=== PATIENT | male | born 1975 | race Caucasian/White ===

== ENCOUNTER 2020-04-15 08:17 | Emergency (ER) | payer MEDICAID, SELFPAY ==
[2020-04-15 08:39] VITALS: BP 155/103; PULSE 73; RESP 16; TEMP 36.9; O2SAT 99; BMI 23.0
--- NOTE | 2020-04-15 09:02 | ED_ITS ---
HPI - Nausea/Vomiting/Diarrhea General: Chief complaint: Nausea/Vomiting/Diarrhea Stated complaint: withdrawl complications Time Seen by Provider: 04/15/20 08:20 Source: patient Mode of arrival: ambulatory Limitations: no limitations History of Present Illness: HPI Narrative: 44-year-old male patient presents to the emergency department due to nausea vomiting, headache, achy all over x12 hours. He reports dropped his Subutex prescription medication in the toilet, last dose was yesterday morning. He reports has follow-up appointment on Friday for refill with Dr. Rivas in [place]. He reports is a Recovering heroin addict. Last use of heroin 5 months ago. He also reports history of leukocytosis with questionable leukemia, has follow- up appointment at [facility] with specialist at [facility] in [place]. He reports significant weight loss over the past 5 to 6 months. MD elicited complaint: nausea, vomiting and abdominal pain Onset (ago): day(s) (1) Description of vomiting: bilious Associated nausea: Yes Associated abdominal pain: Yes Location of pain: Diffuse Pain consistency: intermittent Severity: moderate Quality: cramping, dull and constant Exacerbating factors: other (Absence of Subutex) Relieving factors: rest Associated symtoms: Reports anxiety, fatigue, fevers/chills, headache(s), malaise, myalgias, nausea and weakness; Denies chest pain, dysuria or palpitations Treatment prior to arrival: none Review of Systems General: Reports: 10 or more systems reviewed and unremarkable except in HPI and below Const: Reports: chills, body aches, fatigue and malaise Eyes: Denies: blurry vision or eye redness ENMT: Denies: throat pain, dental pain or disequilibrium Card: Denies: chest pain, palpitations or irregular heart rhythm Resp: Denies: dyspnea, productive cough, non-productive cough or wheezing GI: Reports: abdominal pain, nausea, vomiting, GI cramping and pain on defecation; Denies: heartburn : Denies: dysuria Musc: Denies: neck pain, back pain, joint pain or joint warmth Skin/Breast: Denies: rash or pruritus Neuro: Reports: headache(s); Denies: numbness in extremities or sensory changes Psych: Reports: anxiety; Denies: depression Cooper/Lymph: Denies: easy bruising PFSH ED PFSH: Social History (Updated 04/15/20 @ 08:45 by Fidencio Tan RN) Smoking and tobacco status: current every day smoker cigarettes Packs smoked per day: 0.5 Alcohol intake: never Physical Exam Const: COMMON NORMALS: no acute distress, patient oriented x3, healthy appearing and alert GENERAL APPEARANCE: cooperative, comfortable and well hydrated NUTRITIONAL APPEARANCE: thin ORIENTATION/CONSCIOUSNESS: Yes awake, Yes oriented to person, Yes oriented to place and Yes oriented to time HENMT: COMMON NORMALS: normocephalic, Normal external nose present and moist oral mucous membranes HEAD & SCALP: normocephalic NOSE: Normal external nose present Eye: COMMON NORMALS: Equal, round and reactive pupils present and EOMs intact bilaterally GENERAL EYE: appearance normal, both eyes and all related structures PUPIL: Yes Equal, round and reactive pupils present Neck/C-Spine: COMMON NORMALS: full ROM and no lymphadenopathy GENERAL: Yes normal visual inspection and Yes trachea midline CERVICAL SPINE: Yes cervical ROM normal Lymph: LYMPHATIC: no lymphadenopathy noted Chest: COMMONS NORMALS: normal inspection of the chest and normal palpation of entire chest wall Resp: COMMON NORMALS: normal respiratory effort and clear to auscultation bilaterally EFFORT & INSPECTION: Yes able to speak in complete sentences AUSCULTATION: clear to auscultation bilaterally Cardio: COMMON NORMALS: regular rhythm, S1 normal heart sound present, S2 normal heart sound present and Peripheral pulses 2+ throughout RHYTHM: regular rhythm HEART SOUNDS: S1 normal heart sound present and S2 normal heart sound present PERIPHERAL PULSES: Peripheral pulses 2+ throughout GI: COMMON NORMALS: Normal to inspection, nondistended, normoactive bowel sounds present, Soft to palpation and non-tender INSPECTION: Yes normal to inspection, No Abdominal wall edema, No abdominal distension and No visible peristalsis PALPATION: Yes Soft to palpation : COMMON NORMALS: Yes no CVA tenderness BLADDER/KIDNEY EXAM: Yes no CVA tenderness Back/Pelvis: COMMON NORMALS: no CVA tenderness and thoracic and lumbar spine normal to inspection Extremity: COMMON NORMALS: normal to inspection and capillary refill normal Neuro: COMMON NORMALS: patient oriented x3 and no focal motor deficits SENSORIUM/ORIENTATION: Yes alert, Yes oriented to person, Yes oriented to place and Yes oriented to time Psych: COMMON NORMALS: mental status grossly normal, Normal thought process present and cooperative ACTIVITY/MOTOR BEHAVIOR: Yes appropriate eye contact THOUGHT PROCESS: Normal thought process present Skin: COMMON NORMALS: no rashes or lesions noted and turgor normal GENERAL SKIN EXAM: no rashes or lesions noted and turgor normal Course ED course: 44-year-old male patient presents to the emergency department with Subutex withdrawal symptoms. Patient is declining serology work-up, has declined x-ray work-up. He received IV fluids along with Zofran and IV Tylenol which helps symptoms. Was tolerating ice chips without vomiting. Spoke with Dr. Rojo, ED supervising physician who advised unable to prescribe Subutex secondary to required licensure. Patient is requesting to leave AGAINST MEDICAL ADVICE. He agrees need for follow-up with Dr. Rivas as scheduled on Friday. I have prescribed a few tablets of clonidine to help with withdrawal symptoms. I have also prescribed Zofran to help with nausea symptoms. He was advised to return to the emergency department if he developed worsening symptoms. He is aware white blood count could be elevated and could have life-threatening illness such as leukemia that cannot be appreciated without needed serology testing. He continues to refuse testing and expresses to leave AMA. Vital Signs: Vital signs: Vital Signs Temperature 98.4 F 04/15/20 08:39 Pulse Rate 73 04/15/20 08:39 Respiratory Rate 16 04/15/20 10:33 Blood Pressure 155/103 04/15/20 08:39 Pulse Oximetry 99 04/15/20 08:39 Discharge Plan Discharge Patient Disposition: Left Against Medical Advice Clinical Impression: Withdrawal from opioids Nausea & vomiting Qualifiers: Vomiting type: unspecified Vomiting Intractability: unspecified Qualified Code(s): R11.2 - Nausea with vomiting, unspecified Condition: Stable Prescriptions: New clonidine HCl 0.1 mg tablet 0.1 mg PO Q12H Qty: 4 RF: 0 Zofran 4 mg tablet 4 mg PO Q4H Qty: 4 RF: 0 Discharge Orders: Discharge Order (Routine); Ordered 04/15/20 Ordered By: Faith Lawrence Referrals: Sixto Salas MD [Primary Care Provider] - Discharge Diet: Advance as tolerated and Clear Liquid Discharge Activity: Limit activity as instructed Patient Instructions: Acute Nausea and Vomiting (ED), Opioid Withdrawal (ED) Activity Restrictions/Additional Instructions: Return to the emergency department if you develop increased nausea vomiting despite use of Zofran, abdominal pain or other concerning symptoms Follow-up with Dr. Rivas on Friday as scheduled Clear liquid diet and advance as tolerated, avoid greasy fried fatty foods as this can increase vomiting symptoms and nausea Take it easy today and tomorrow, rest at home, clonidine will make you sleepy so do not drive or operate heavy machinery with use of medication. Coding Level of Care Code ED Marine Electronics Technician for Chg Fwd Exam Comprehensive
[2020-04-15] MEDS: ondansetron 2 mg/ML SDV 2 mL 4 MG IVP (09:40)
[2020-04-15] MEDS: sodium chloride 0.9% 500 ML 999 ML IV (09:40)
--- NOTE | 2020-04-15 09:49 | PC.NURSE ---
REFUSING UA, CXR, ASSESSMENT. JUST WANTS SCRIPT AND TO BE DISCHARGED.
[2020-04-15 10:33] VITALS: RESP 16
== END 2020-04-15 10:25 | disposition left against medical advice (07) ==
PROVIDERS: Emergency Provider Nurse Practitioner Family; PCP Family Medicine
DX: F11.23 Opioid dependence with withdrawal (principal); F17.210 Nicotine dependence, cigarettes, uncomplicated; Z53.21 Procedure and treatment not carried out due to patient leaving prior to being seen by health care provider
CPT/HCPCS: 12345; 96374; 96375; 99283; J0131; J2405; J7040

== ENCOUNTER → 2020-08-03 13:40 | Outpatient (BNVA) | payer OTHER, SELFPAY | PROVIDERS: PCP Family Medicine | DX: Z20.822 Contact with and (suspected) exposure to COVID-19 (principal) | CPT/HCPCS: 87635 ==

== ENCOUNTER 2020-10-06 14:50 | Emergency (ER) | payer MEDICAID, SELFPAY ==
[2020-10-06 14:55] VITALS: BP 132/109; PULSE 74; RESP 16; TEMP 36.6; O2SAT 98; BMI 23.0
--- NOTE | 2020-10-06 15:08 | ED_ITS ---
HPI - Psych General: Chief Complaint: Psychiatric Symptoms Stated Complaint: PSYCH EVAL Time Seen by Provider: 10/06/20 14:52 Source: patient Mode of arrival: EMS Limitations: no limitations History of Present Illness: HPI Narrative: Patient is a 45-year-old male was sent to the emergency department from [facility] for evaluation. He states that he has been out of his Subutex for about 2 weeks and said that he missed his appointment to [place] to get his pain doctor to refill the medication. He states that he is also out of Prilosec and Remeron I would like them refilled also. He admits to several days of diarrhea, loose watery stools with no blood or mucus in them. Denies any vomiting or nausea. No fever. He thinks he may be dehydrated as he has a loss of appetite. He denies suicidal ideation and denies homicidal ideation. He also mentioned that he had been told that he may have leukemia but he is unwilling to have further testing as he does not want to face the possibility of that diagnosis. Associated psychiatric symptoms: depression Associated symptoms: Deny auditory hallucinations, visual hallucinations, delusions, depression, homicidal ideation, suicidal ideation or racing thoughts Treatments prior to arrival: none Review of Systems General: Reports: 10 or more systems reviewed and unremarkable except in HPI and below GI: Reports: diarrhea Psych: Denies: depression, visual hallucinations, auditory hallucinations, suicidal ideation or homicidal ideation [facility] ED PFSH: Social History (Reviewed 10/06/20 @ 15:17 by Maddi Quarles MD, [facility] [place]) Smoking and tobacco status: current every day smoker cigarettes Packs smoked per day: 0.5 Alcohol intake: never Physical Exam Const: COMMON NORMALS: no acute distress, average body habitus, patient oriented x3, no limitations, healthy appearing, alert and well nourished HENMT: COMMON NORMALS: normocephalic, atraumatic and moist oral mucous membranes HEAD & SCALP: normocephalic and atraumatic Neck/C-Spine: COMMON NORMALS: no meningeal signs and no JVD Resp: COMMON NORMALS: normal respiratory effort, No retractions, No use of accessory muscles, clear to auscultation bilaterally and percussion normal AUSCULTATION: clear to auscultation bilaterally PERCUSSION: percussion normal Cardio: COMMON NORMALS: no JVD, regular rate, regular rhythm, S1 normal heart sound present, S2 normal heart sound present, No gallops present (Cardio), No clicks present (Cardio), No murmurs present (Cardio), No rub (Cardio) and Peripheral pulses 2+ throughout RATE: regular rate RHYTHM: regular rhythm HEART SOUNDS: S1 normal heart sound present and S2 normal heart sound present PERIPHERAL PULSES: Peripheral pulses 2+ throughout GI: COMMON NORMALS: Normal to inspection, nondistended, normoactive bowel sounds present, Soft to palpation, non-tender, No hepatosplenomegaly present, no masses and no bruits PALPATION: Yes Soft to palpation and Yes No hepatosplenomegaly present Extremity: COMMON NORMALS: normal to inspection, full ROM, capillary refill normal, no calf tenderness and no pedal edema Neuro: COMMON NORMALS: patient oriented x3 SENSORIUM/ORIENTATION: Yes alert MENINGEAL SIGNS: Yes no meningeal signs Psych: THOUGHT CONTENT: No delusions Skin: COMMON NORMALS: no rashes or lesions noted, no wounds, turgor normal, no jaundice, no petechiae and no mottling GENERAL SKIN EXAM: no rashes or lesions noted and turgor normal Course Reevaluation(s): Reevaluation #1: Discussed these lab findings with him. BUN/creatinine ratio suggestive of dehydration including ketones in his urine. Otherwise unremarkable. He has received 1 L of normal saline and he will be discharged home. No signs of infection and he has had no bowel movement in the ED. He voiced understanding and is in agreement with the plan. Time: 16:45 Vital Signs: Vital signs: Vital Signs Temperature 97.9 F 10/06/20 14:55 Pulse Rate 75 10/06/20 17:04 Respiratory Rate 16 10/06/20 17:04 Blood Pressure 152/101 10/06/20 17:04 Pulse Oximetry 98 10/06/20 17:04 MDM - Psych MDM Narrative: Medical decision making narrative: 45-year-old male who presents to the emergency department with diarrhea for several days as well as needing his medications refilled. He had missed an appointment with his pain doctor for refill of Subutex. He says that avoid withdrawal he had used methamphetamines yesterday. Evaluation in the emergency department shows dehydration and he was given 1 L of normal saline. Evaluation was otherwise unremarkable. He did not have any bowel movement in the emergency department. He is discharged home on conservative measures. He was informed that we do not refill Subutex in the emergency department and he stated that he knew that, however I refilled his mirtazapine and omeprazole. Medical Records: Attestation: I reviewed the patient's medical records. Lab Data: Attestation: I reviewed the patient's lab results. Labs: Lab Results 10/06/20 10/06/20 10/06/20 Range/Units 15:40 15:40 15:40 WBC 11.2 H (4.0-10.0) 10^3/ uL RBC 5.49 H (4.1-5.3) 10^6/u L Hgb 17.0 H (11.7-16.6) g/dL Hct 48.6 (42.0-52.0) % MCV 88.5 (80-94) fL MCH 31.0 (28.0-34.0) pg MCHC 35.0 (30.0-36.0) g/dL RDW 12.8 (12.1-15.1) % Plt Count 344 (130-400) 10^3/c mm MPV 10.0 (7.4-10.4) fL Neut % (Auto) 46.5 % Lymph % (Auto) 45.0 % [place] % (Auto) 7.1 % Eos % (Auto) 0.8 % Baso % (Auto) 0.4 % Neut # (Auto) 5.21 (1.8-7.7) 10^3/u L Lymph # (Auto) 5.0 H (0.8-4.8) 10^3/u L [place] # (Auto) 0.8 (0.2-0.9) 10^3/u L Eos # (Auto) 0.1 (0.0-0.8) 10^3/u L Baso # (Auto) 0.1 (0.0-0.1) 10^3/u L Nucleated RBC % (a uto) 0 % Nucleated RBCs # 0.0 /100WBC Sodium 130 L (136-145) mmol/L Potassium 4.1 (3.5-5.1) mmol/L Chloride 95 L (98-107) mmol/L Carbon Dioxide 20 L (22-29) mmol/L Anion Gap 19.1 H (5-19) BUN 23 H (6-20) mg/dL Creatinine 0.9 (0.7-1.2) mg/dL GFR Calculation 91.7 (90-130) mL/min Glucose 90 (65-115) mg/dL Calculated Osmolal ity 273 L (285-295) mOsm/k g Lactate 1.4 (0.5-2.2) mmol/L Calcium 9.3 (8.5-10.5) mg/dL Total Bilirubin 0.9 (0.15-1.2) mg/dL AST 17 (0-40) U/L ALT 9 (0-41) U/L Alkaline Phosphata se 90 (40-130) IU/L Total Protein 8.2 (6.6-8.7) g/dL Albumin 5.1 (3.5-5.2) g/dL Globulin 3.1 (1.3-4.6) g/dL Lipase 36 (13-60) U/L Urine Color (Yellow) Urine Appearance (CLEAR) Urine pH (5-7) Ur Specific Gravit y (1.005-1.030) Urine Protein (Negative) Urine Glucose (UA) (Normal) Urine Ketones (Negative) Urine Blood (Negative) Urine Nitrate (Negative) Urine Bilirubin (Negative) Urine Urobilinogen (Negative) mg/dL Ur Leukocyte Farnaz ase (Negative) Urine RBC (0-2) /hpf Urine WBC (0-5) /hpf Ur Squamous Epith Cells (0-5) /hpf Amorphous Sediment Urine Bacteria (NONE) /hpf Hyaline Casts /lpf Urine Mucus /hpf // Range/Units 15:40 WBC (4.0-10.0) 10^3/ uL RBC (4.1-5.3) 10^6/u L Hgb (11.7-16.6) g/dL Hct (42.0-52.0) % MCV (80-94) fL MCH (28.0-34.0) pg MCHC (30.0-36.0) g/dL RDW (12.1-15.1) % Plt Count (130-400) 10^3/c mm MPV (7.4-10.4) fL Neut % (Auto) % Lymph % (Auto) % [place] % (Auto) % Eos % (Auto) % Baso % (Auto) % Neut # (Auto) (1.8-7.7) 10^3/u L Lymph # (Auto) (0.8-4.8) 10^3/u L [place] # (Auto) (0.2-0.9) 10^3/u L Eos # (Auto) (0.0-0.8) 10^3/u L Baso # (Auto) (0.0-0.1) 10^3/u L Nucleated RBC % (a uto) % Nucleated RBCs # /100WBC Sodium (136-145) mmol/L Potassium (3.5-5.1) mmol/L Chloride (98-107) mmol/L Carbon Dioxide (22-29) mmol/L Anion Gap (5-19) BUN (6-20) mg/dL Creatinine (0.7-1.2) mg/dL GFR Calculation (90-130) mL/min Glucose (65-115) mg/dL Calculated Osmolal ity (285-295) mOsm/k g Lactate (0.5-2.2) mmol/L Calcium (8.5-10.5) mg/dL Total Bilirubin (0.15-1.2) mg/dL AST (0-40) U/L ALT (0-41) U/L Alkaline Phosphata se (40-130) IU/L Total Protein (6.6-8.7) g/dL Albumin (3.5-5.2) g/dL Globulin (1.3-4.6) g/dL Lipase (13-60) U/L Urine Color Yellow (Yellow) Urine Appearance Clear (CLEAR) Urine pH 5 (5-7) Ur Specific Gravit y 1.025 (1.005-1.030) Urine Protein Neg (Negative) Urine Glucose (UA) Norm (Normal) Urine Ketones 1+ H (Negative) Urine Blood 2+ H (Negative) Urine Nitrate Negative (Negative) Urine Bilirubin Neg (Negative) Urine Urobilinogen 1 H (Negative) mg/dL Ur Leukocyte Farnaz ase Negative (Negative) Urine RBC Rare (0-2) /hpf Urine WBC Rare (0-5) /hpf Ur Squamous Epith Cells Rare (0-5) /hpf Amorphous Sediment Not Reportable Urine Bacteria 1+ H (NONE) /hpf Hyaline Casts 0-4 H /lpf Urine Mucus 2+ /hpf Discharge Plan Discharge Patient Disposition: Home Clinical Impression: Dehydration Diarrhea Qualifiers: Diarrhea type: unspecified type Qualified Code(s): R19.7 - Diarrhea, unspecified Condition: Stable Prescriptions: Continued ProAir HFA 90 mcg/actuation Hfa Aerosol Inhaler 2 puff INHALATION Q4H PRN (Reason: Shortness Of Breath) RF: 0 buprenorphine HCl 8 mg tablet, sublingual 8 mg SUBLINGUAL TID RF: 0 mirtazapine 45 mg tablet 45 mg PO BEDTIME Qty: 30 RF: 0 omeprazole 40 mg capsule,delayed release(DR/EC) 40 mg PO DAILY Qty: 30 RF: 0 Discharge Orders: Discharge ED (Routine); Ordered 10/06/20 Ordered By: Maddi Quarles Discharge Diet: Usual diet Discharge Activity: Increase activity as tolerated Patient Instructions: Diarrhea - Adult, Dehydration (ED) Activity Restrictions/Additional Instructions: Return for any new or worsening symptoms. Follow-up with your primary care provider within 3 days. Drink plenty of fluids to keep well-hydrated. Take your medications as prescribed. Coding Level of Care Code ED [employer] Floor for Chelle Fwd Exam Comprehensive
[2020-10-06] MEDS: sodium chloride 0.9% 1,000 ML 999 ML IV (15:49)
[2020-10-06 16:08] LABS: Basophils # 0.1 10^3/uL (0.0-0.1); Basophils % 0.4 %; Eosinophils # 0.1 10^3/uL (0.0-0.8); Eosinophils % 0.8 %; Hematocrit 48.6 % (42.0-52.0); Mean Corpuscular Volume 88.5 fL (80-94); Monocytes # 0.8 10^3/uL (0.2-0.9); Monocytes % 7.1 %; Neutrophils # 5.21 10^3/uL (1.8-7.7); Neutrophils % 46.5 %; Nucleated Red Blood Cells % 0 %; Platelet Count 344 10^3/cmm (130-400); Red Blood Count 5.49 10^6/uL (4.1-5.3); Red Cell Distribution Width 12.8 % (12.1-15.1); White Blood Count 11.2 10^3/uL (4.0-10.0)
[2020-10-06 16:14] LABS: Specific Gravity, Urine 1.025 (1.005-1.030); Urine Appearance Clear (CLEAR); Urine Color Yellow (Yellow); pH Urine 5 (5-7)
[2020-10-06 16:15] LABS: Add Urine Microscopic? YES; Bilirubin Urine Neg (Negative); Blood Urine 2+ (Negative); Glucose Urine UA Norm (Normal); Ketones Urine 1+ (Negative); Leukocyte Esterase Urine Negative (Negative); Nitrate Urine Negative (Negative); Protein Urine Neg (Negative); Urobilinogen Urine 1 mg/dL (Negative)
[2020-10-06 16:25] LABS: Bacteria Urine 1+ /hpf; Mucus Urine 2+ /hpf; RBC Urine RARE /hpf (0-2); Squamous Epithelial Cell Urine RARE /hpf (0-5); WBC Urine RARE /hpf (0-5)
[2020-10-06 16:26] LABS: Add Urine Culture? No; Hyaline Casts Urine 0-4 /lpf
[2020-10-06 16:31] LABS: Lactate (Lactic Acid level) 1.4 mmol/L (0.5-2.2)
[2020-10-06 16:37] LABS: Alanine Aminotransferase 9 U/L (0-41); Albumin Level 5.1 g/dL (3.5-5.2); Alkaline Phosphatase 90 IU/L (40-130); Anion Gap 19.1 (5-19); Aspartate Amino Transferase 17 U/L (0-40); Blood Urea Nitrogen 23 mg/dL (6-20); Calcium 9.3 mg/dL (8.5-10.5); Carbon Dioxide 20 mmol/L (22-29); Chloride 95 mmol/L (98-107); Globulin 3.1 g/dL (1.3-4.6); Glomerular Filtration Rate 91.7 mL/min (90-130); Glucose 90 mg/dL (65-115); Lipase 36 U/L (13-60); Osmolality Calculated 273 mOsm/kg (285-295); Potassium 4.1 mmol/L (3.5-5.1); Sodium 130 mmol/L (136-145); Total Bilirubin 0.9 mg/dL (0.15-1.2); Total Protein 8.2 g/dL (6.6-8.7)
[2020-10-06 16:42] VITALS: BP 162/105; PULSE 82; RESP 16; O2SAT 98
[2020-10-06 17:04] VITALS: BP 152/101; PULSE 75; RESP 16; O2SAT 98
== END 2020-10-06 17:06 | disposition home or self-care (01) ==
PROVIDERS: Emergency Provider Family Medicine
DX: E86.0 Dehydration (principal); R19.7 Diarrhea, unspecified; F17.210 Nicotine dependence, cigarettes, uncomplicated
CPT/HCPCS: 80053; 81001; 83605; 83690; 85025; 96360; 99283; J7030

== ENCOUNTER 2020-11-27 11:13 | Inpatient (IN) | payer MEDICAID, SELFPAY ==
[2020-11-27 11:25] VITALS: BP 118/73; PULSE 80; RESP 16; TEMP 36.8; O2SAT 97
--- NOTE | 2020-11-27 11:33 | ECG_ITS ---
[facility] Test Date: 2020-11-27 Pat Name: Ismael Ferrell Department: Room: Gender: Male Information Services Vice President: : 1975 Requested By: Rob Brown Order Number: [id number] Floridalma MD: DIANA JASMINE Measurements Intervals [place] Rate: 62 P: 139 GA: 181 QRS: 224 QRSD: 101 T: 145 QT: 403 QTc: 410 Interpretive Statements SINUS RHYTHM ARM LEADS REVERSED [INVERTED P AND QRS IN I] ATYPICAL ECG No previous ECG available for comparison Electronically Signed On 11-27-2020 18:48:53 CDT by DIANA JASMINE [email or web address]
--- NOTE | 2020-11-27 11:34 | ED_ITS ---
HPI - Psych General: Chief Complaint: Psychiatric Symptoms Stated Complaint: Suicidal Time Seen by Provider: 11/27/20 11:30 History of Present Illness: HPI Narrative: This patient is a 45-year-old male who presents to the emergency department with complaint of auditory hallucinations. Patient has long history of drug abuse states he tries to take prep pretty much anything he can get his hands on. Patient states he smokes marijuana take Xanax a day. Last used methamphetamine just a few days ago. Patient also states he uses heroin in the past and try to get of Subutex treatments. Patient states it is hard to find heroin in these parts but mostly just uses meth. Patient denies suicidal ideation. Patient believes he needs to be in the stress unit here because the voices he hears. Patient states he has had this issues for years. Will do medical evaluation treat as needed. complaint: other Onset (ago): year(s) Duration: intermittent History of same: Yes Relieving factors: none Exacerbating factors: none Associated symptoms: Reports auditory hallucinations; Deny depression, homicidal ideation or suicidal ideation Review of Systems General: Reports: 10 or more systems reviewed and unremarkable except in HPI and below Const: Denies: fever(s), chills, body aches or fatigue Eyes: Denies: change in vision or blurry vision ENMT: Denies: throat pain, hoarseness or mouth pain Card: Denies: chest pain, palpitations, irregular heart rhythm, edema, swelling of feet/ankles or lightheadedness Resp: Denies: dyspnea, productive cough, non-productive cough, wheezing or pain on inspiration GI: Denies: abdominal pain, nausea or vomiting : Denies: flank pain, dysuria, urinary frequency, urinary urgency or urinary hesitancy Musc: Denies: neck pain, back pain, extremity pain, extremity swelling, joint pain, joint swelling, joint redness, joint warmth or limited range of motion Skin/Breast: Denies: rash, pruritus, erythema or skin tenderness Neuro: Denies: headache(s), numbness in extremities or weakness in extremities Psych: Reports: auditory hallucinations; Denies: anxiety, depression, suicidal ideation or homicidal ideation PFS ED PFSH: Social History Smoking and tobacco status: current every day smoker cigarettes Packs smoked per day: 0.5 Alcohol intake: never Physical Exam Const: COMMON NORMALS: no acute distress, average body habitus, patient oriented x3, no limitations, healthy appearing, alert and well nourished HENMT: COMMON NORMALS: normocephalic, atraumatic, hearing grossly normal bilaterally, external ears normal, EAC's normal, TM's normal bilaterally, Normal external nose present, Normal nasal mucous membranes and turbinates present, moist oral mucous membranes, oropharynx normal, dentition normal and gingiva normal HEAD & SCALP: normocephalic and atraumatic NOSE: Normal external nose present and Normal nasal mucous membranes and turbinates present EXTERNAL EAR: Yes external ears normal EXTERNAL AUDITORY CANAL: EAC's normal TYMPANIC MEMBRANE: TM's normal bilaterally Neck/C-Spine: COMMON NORMALS: full ROM, no lymphadenopathy, supple, no meningeal signs, no JVD, Thyroid normal and No carotid bruits THYROID: Thyroid normal Chest: COMMONS NORMALS: normal inspection of the chest, normal palpation of entire chest wall, normal inspection of the breasts and normal palpation of the breasts Breast/axilla inspection: Yes normal inspection of the breasts BREAST/AXILLA PALPATION: Yes normal palpation of the breasts Resp: COMMON NORMALS: normal respiratory effort, No retractions, No use of accessory muscles, clear to auscultation bilaterally and percussion normal AUSCULTATION: clear to auscultation bilaterally PERCUSSION: percussion normal Cardio: COMMON NORMALS: no JVD, regular rate, regular rhythm, S1 normal heart sound present, S2 normal heart sound present, No gallops present (Cardio), No clicks present (Cardio), No murmurs present (Cardio), No rub (Cardio) and Peripheral pulses 2+ throughout RATE: regular rate RHYTHM: regular rhythm HEART SOUNDS: S1 normal heart sound present and S2 normal heart sound present PERIPHERAL PULSES: Peripheral pulses 2+ throughout GI: COMMON NORMALS: Normal to inspection, nondistended, normoactive bowel sounds present, Soft to palpation, non-tender, No hepatosplenomegaly present, no masses and no bruits PALPATION: Yes Soft to palpation and Yes No hepatosplenomegaly present : COMMON NORMALS: Yes no CVA tenderness BLADDER/KIDNEY EXAM: Yes no CVA tenderness Back/Pelvis: COMMON NORMALS: no CVA tenderness, thoracic and lumbar spine normal to inspection, no thoracic nor lumbar tenderness, thoraco-lumbar ROM normal and straight leg raise negative bilaterally Extremity: COMMON NORMALS: normal to inspection, full ROM, capillary refill normal, no joint enlargement, no clubbing, cyanosis or edema, no calf tenderness and no pedal edema Neuro: COMMON NORMALS: patient oriented x3 SENSORIUM/ORIENTATION: Yes alert MENINGEAL SIGNS: Yes no meningeal signs Psych: COMMON NORMALS: mental status grossly normal, Normal thought process present, cooperative, normal affect, speech normal, denies homicidal ideation and denies suicidal ideation APPEARANCE: Yes grossly normal ATTITUDE: Yes calm SPEECH: Yes normal speech THOUGHT PROCESS: Normal thought process present Course Reevaluation(s): Reevaluation #1: Patient states he does not want to live anymore. But does not have a specific plan. Admits that he has been using drugs pretty frequently and has a chronic condition. Ever since getting out of nursing home. Time: 12:42 Consultations: Consultation #1: I discussed at length with psychiatry Dr. Garcia. He request the patient be placed on a 96-hour hold and admit to the unit. Time: 12:43 Vital Signs: Vital signs: Vital Signs Temperature 98.2 F 11/27/20 11:25 Pulse Rate 80 11/27/20 11:25 Respiratory Rate 16 11/27/20 11:25 Blood Pressure 118/73 11/27/20 11:25 Pulse Oximetry 97 11/27/20 11:25 MDM - Psych MDM Narrative: Medical decision making narrative: This patient is a 45-year-old male who presents to the emergency department with complaint of auditory hallucinations. Patient has long history of drug abuse states he tries to take prep pretty much anything he can get his hands on. Patient states he smokes marijuana take Xanax a day. Last used methamphetamine just a few days ago. Patient also states he uses heroin in the past and try to get of Subutex treatments. Patient states it is hard to find heroin in these parts but mostly just uses meth. Patient denies suicidal ideation. Patient believes he needs to be in the stress unit here because the voices he hears. Patient states he has had this issues for years. Lab Data: Labs: Lab Results 11/27/20 11/27/20 11/27/20 Range/Units 11:47 11:47 11:49 WBC 8.5 (4.0-10.0) 10^3/ uL RBC 4.31 (4.1-5.3) 10^6/u L Hgb 13.4 (11.7-16.6) g/dL Hct 39.6 L (42.0-52.0) % MCV 91.9 (80-94) fL MCH 31.1 (28.0-34.0) pg MCHC 33.8 (30.0-36.0) g/dL RDW 13.3 (12.1-15.1) % Plt Count 307 (130-400) 10^3/c mm MPV 9.8 (7.4-10.4) fL Neut % (Auto) 38.7 % Lymph % (Auto) 52.2 % [place] % (Auto) 6.4 % Eos % (Auto) 1.9 % Baso % (Auto) 0.6 % Neut # (Auto) 3.29 (1.8-7.7) 10^3/u L Lymph # (Auto) 4.4 (0.8-4.8) 10^3/u L [place] # (Auto) 0.5 (0.2-0.9) 10^3/u L Eos # (Auto) 0.2 (0.0-0.8) 10^3/u L Baso # (Auto) 0.1 (0.0-0.1) 10^3/u L Nucleated RBC % (a uto) 0 % Nucleated RBCs # 0.0 /100WBC Sodium (136-145) mmol/L Potassium (3.5-5.1) mmol/L Chloride (98-107) mmol/L Carbon Dioxide (22-29) mmol/L Anion Gap (5-19) BUN (6-20) mg/dL Creatinine (0.7-1.2) mg/dL GFR Calculation (90-130) mL/min Glucose (65-115) mg/dL Calculated Osmolal ity (285-295) mOsm/k g Calcium (8.5-10.5) mg/dL Total Bilirubin (0.15-1.2) mg/dL AST (0-40) U/L ALT (0-41) U/L Alkaline Phosphata se (40-130) IU/L Total Protein (6.6-8.7) g/dL Albumin (3.5-5.2) g/dL Globulin (1.3-4.6) g/dL Urine Color Straw (Yellow) Urine Appearance Clear (CLEAR) Urine pH 7 (5-7) Ur Specific Gravit y 1.005 (1.005-1.030) Urine Protein Neg (Negative) Urine Glucose (UA) Norm (Normal) Urine Ketones Negative (Negative) Urine Blood Neg (Negative) Urine Nitrate Negative (Negative) Urine Bilirubin Neg (Negative) Urine Urobilinogen Norm (Negative) mg/dL Ur Leukocyte Farnaz ase Negative (Negative) Salicylates (3-10) mg/dL Urine Opiates Scre en Negative (Negative) ng/mL Acetaminophen (10-30) ug/mL Ur Barbiturates Sc reen Negative (Negative) ng/mL Ur Phencyclidine S crn Negative (Negative) ng/mL Ur Amphetamines Sc reen Negative (Negative) ng/mL U Benzodiazepines Scrn Positive H (Negative) ng/mL Urine Cocaine Scre en Negative (Negative) ng/mL U Marijuana (THC) Screen Positive H (Negative) ng/mL Ethyl Alcohol (0-10) mg/dL 11/27/20 Range/Units 11:49 WBC (4.0-10.0) 10^3/ uL RBC (4.1-5.3) 10^6/u L Hgb (11.7-16.6) g/dL Hct (42.0-52.0) % MCV (80-94) fL MCH (28.0-34.0) pg MCHC (30.0-36.0) g/dL RDW (12.1-15.1) % Plt Count (130-400) 10^3/c mm MPV (7.4-10.4) fL Neut % (Auto) % Lymph % (Auto) % [place] % (Auto) % Eos % (Auto) % Baso % (Auto) % Neut # (Auto) (1.8-7.7) 10^3/u L Lymph # (Auto) (0.8-4.8) 10^3/u L [place] # (Auto) (0.2-0.9) 10^3/u L Eos # (Auto) (0.0-0.8) 10^3/u L Baso # (Auto) (0.0-0.1) 10^3/u L Nucleated RBC % (a uto) % Nucleated RBCs # /100WBC Sodium 135 L (136-145) mmol/L Potassium 4.4 (3.5-5.1) mmol/L Chloride 102 (98-107) mmol/L Carbon Dioxide 26 (22-29) mmol/L Anion Gap 11.4 (5-19) BUN 9 (6-20) mg/dL Creatinine 0.8 (0.7-1.2) mg/dL GFR Calculation 105.0 (90-130) mL/min Glucose 91 (65-115) mg/dL Calculated Osmolal ity 278 L (285-295) mOsm/k g Calcium 8.9 (8.5-10.5) mg/dL Total Bilirubin 0.5 (0.15-1.2) mg/dL AST 18 (0-40) U/L ALT 12 (0-41) U/L Alkaline Phosphata se 65 (40-130) IU/L Total Protein 6.8 (6.6-8.7) g/dL Albumin 4.0 (3.5-5.2) g/dL Globulin 2.8 (1.3-4.6) g/dL Urine Color (Yellow) Urine Appearance (CLEAR) Urine pH (5-7) Ur Specific Gravit y (1.005-1.030) Urine Protein (Negative) Urine Glucose (UA) (Normal) Urine Ketones (Negative) Urine Blood (Negative) Urine Nitrate (Negative) Urine Bilirubin (Negative) Urine Urobilinogen (Negative) mg/dL Ur Leukocyte Farnaz ase (Negative) Salicylates 0.7 L (3-10) mg/dL Urine Opiates Scre en (Negative) ng/mL Acetaminophen < 5.0 L (10-30) ug/mL Ur Barbiturates Sc reen (Negative) ng/mL Ur Phencyclidine S crn (Negative) ng/mL Ur Amphetamines Sc reen (Negative) ng/mL U Benzodiazepines Scrn (Negative) ng/mL Urine Cocaine Scre en (Negative) ng/mL U Marijuana (THC) Screen (Negative) ng/mL Ethyl Alcohol < 10 (0-10) mg/dL EKG Data^: EKG 1: Attestation: I personally reviewed and interpreted this EKG as follows: EKG interpretation date: 11/27/20 EKG interpretation time: 11:58 Prior EKG tracings: not available for review Interpretation: Normal sinus rhythm heart rate 62 Discharge Plan Discharge Patient Disposition: Admitted As Inpatient Clinical Impression: Suicidal ideation, Drug abuse Condition: Stable Coding Level of Care Code ED Immigration Investigator for Chg Fwd Exam Comprehensive
[2020-11-27 12:01] LABS: Add Urine Microscopic? NO; Charge for UA Resulting for Rev
[2020-11-27 12:02] LABS: Basophils # 0.1 10^3/uL (0.0-0.1); Basophils % 0.6 %; Eosinophils # 0.2 10^3/uL (0.0-0.8); Eosinophils % 1.9 %; Hematocrit 39.6 % (42.0-52.0); Hemoglobin 13.4 g/dL (11.7-16.6); Lymphocytes # 4.4 10^3/uL (0.8-4.8); Lymphocytes % 52.2 %; Mean Corpuscular HGB Conc 33.8 g/dL (30.0-36.0); Mean Corpuscular Hemoglobin 31.1 pg (28.0-34.0); Mean Corpuscular Volume 91.9 fL (80-94); Mean Platelet Volume 9.8 fL (7.4-10.4); Monocytes # 0.5 10^3/uL (0.2-0.9); Monocytes % 6.4 %; Neutrophils # 3.29 10^3/uL (1.8-7.7); Neutrophils % 38.7 %; Nucleated Red Blood Cells % 0 %; Platelet Count 307 10^3/cmm (130-400); Red Blood Count 4.31 10^6/uL (4.1-5.3); Red Cell Distribution Width 13.3 % (12.1-15.1); White Blood Count 8.5 10^3/uL (4.0-10.0)
[2020-11-27 12:06] LABS: Bilirubin Urine Neg (Negative); Blood Urine Neg (Negative); Glucose Urine UA Norm (Normal); Ketones Urine Negative (Negative); Leukocyte Esterase Urine Negative (Negative); Nitrate Urine Negative (Negative); Protein Urine Neg (Negative); Specific Gravity, Urine 1.005 (1.005-1.030); Urine Appearance Clear (CLEAR); Urine Color Straw (Yellow); Urobilinogen Urine Norm (Negative); pH Urine 7 (5-7)
[2020-11-27 12:15] LABS: Amphetamines Screen Urine Negative (Negative); Barbiturates Screen Urine Negative (Negative); Benzodiazepines Screen Urine Positive (Negative); Cocaine Screen Urine Negative (Negative); Opiate Screen Urine Negative (Negative); PCP Screen Urine Negative (Negative); THC Screen Urine Positive (Negative)
[2020-11-27 12:23] LABS: Alanine Aminotransferase 12 U/L (0-41); Alkaline Phosphatase 65 IU/L (40-130); Anion Gap 11.4 (5-19); Aspartate Amino Transferase 18 U/L (0-40); Blood Urea Nitrogen 9 mg/dL (6-20); Calcium 8.9 mg/dL (8.5-10.5); Carbon Dioxide 26 mmol/L (22-29); Chloride 102 mmol/L (98-107); Globulin 2.8 g/dL (1.3-4.6); Glucose 91 mg/dL (65-115); Osmolality Calculated 278 mOsm/kg (285-295); Potassium 4.4 mmol/L (3.5-5.1); Salicylate 0.7 mg/dL (3-10); Sodium 135 mmol/L (136-145); Total Bilirubin 0.5 mg/dL (0.15-1.2); Total Protein 6.8 g/dL (6.6-8.7)
[2020-11-27 12:28] LABS: Acetaminophen < 5.0 ug/mL (10-30); Alcohol Level < 10 mg/dL (0-10)
--- NOTE | 2020-11-27 13:03 | PC.PHAR ---
pt wouldnt verify medications-ext med history shows ibuprofen 800mg last filled on 10d/s,colace 100mg 30d/s,tramcin/orabas 1% dent paste,pantoprazole 40mg 30d/s,benztropine 2mg 30d/s,miralax,lexapro 10mg 30d/s and buprenorphine 8mg sl 14d/s last filled on 10/18/20
[2020-11-27 13:40] VITALS: BP 114/81; PULSE 81; RESP 12; TEMP 36.9; O2SAT 96
[2020-11-27 13:59] VITALS: BP 118/73; PULSE 80; O2SAT 97
[2020-11-27 14:00] VITALS: BP 118/73; PULSE 80; RESP 12; TEMP 36.9
[2020-11-27] MEDS: nicotine 21 mg Patch 1 PATCH TRANSDERMA (15:37)
--- NOTE | 2020-11-27 16:39 | PC.NURSE ---
pt had weed in a baggie in personal belongings. security contacted. contraband disposed of in sharps container.
[2020-11-27 21:22] VITALS: BP 132/77; PULSE 82; RESP 17; TEMP 37.1; O2SAT 96
[2020-11-27] MEDS: benztropine 1 mg Tablet 2 MG PO (21:53)
[2020-11-27] MEDS: escitalopram 10 mg Tablet PO (21:53)
[2020-11-27] MEDS: mirtazapine 15 mg Tablet 45 MG PO (21:54)
[2020-11-28 05:07] VITALS: BP 141/93; PULSE 86; RESP 15; TEMP 37.1; O2SAT 97
[2020-11-28] MEDS: pantoprazole DR 40 mg Tablet PO (08:10)
[2020-11-28] MEDS: docusate sodium 100 mg Capsule PO ×2 (08:10→17:56)
--- NOTE | 2020-11-28 11:53 | P.HP_ITS ---
Providers/Chief Complaint Admitting Physician: Maddison Garcia DO Chief Complaint: Suicidal HPI NPU History of Present Illness Ismael Ferrell is a 45 year old male with unclear past psychiatric history although was reported to have major depressive disorder during behavioral health evaluation in September 2020 presented to the emergency department with auditory hallucinations and was providing vague responses with regards to suicidality at times stating that he was not suicidal and then subsequently stating that he would not be responsible for what he does if he leaves the hospital. Patient was reporting auditory hallucinations and states that his last use of methamphetamine was a few days before presenting to the emergency department yesterday. Patient is irritable and not a very good historian stating how my supposed to get help when telling him that he had requested admission because of suicida lity as well as stating that he had auditory hallucinations and now reporting that he just wants to leave because he has an appointment today. Patient states that if he does not start Suboxone today that he will go out and possibly hurt someone. Patient states that he has a longstanding history of legal issues and currently has 9 warrants out for his arrest in [place]. Patient does not participate in psychiatric review of systems and is yelling at the interviewer. Review of Systems General: Reports: ROS unobtainable due to mental status Meds NPU Home Medications Medication Instructions Recorded Confirmed Last Taken Type benztropine 2 mg PO BEDTIME 11/27/20 11/27/20 Unknown History buprenorphine HCl [Subutex] 8 mg SUBLINGUAL TID MDD 15 11/27/20 11/27/20 Unknown History docusate sodium [Colace] 100 mg PO BID 11/27/20 11/27/20 Unknown History escitalopram oxalate 10 mg PO BEDTIME 11/27/20 11/27/20 Unknown History ibuprofen 800 mg PO Q8H PRN 11/27/20 11/27/20 Unknown History mirtazapine [Remeron] 45 mg PO BEDTIME 11/27/20 11/27/20 Unknown History pantoprazole [Protonix] 40 mg PO DAILY 11/27/20 11/27/20 Unknown History Allergies Allergy/AdvReac Type Severity Reaction Status Date / Time buprenorphine [From Suboxone] Allergy ALGY-Swell Verified 11/27/20 11:34 Lip/Tongue/Throat naloxone Allergy ALGY-Swell Verified 11/27/20 11:34 Lip/Tongue/Throat PFSH NPU PFSH: Social History Smoking and tobacco status: current every day smoker cigarettes Packs smoked per day: 0.5 Alcohol intake: never Other Psychiatric History: Other Psychiatric History: Unable to assess from patient but per chart review, patient had reported last outpatient treatment being with a Subutex provider in [place] who also filled his prescriptions for mirtazapine and escitalopram Reports past suicide attempts with last attempt being a couple years ago Mental Status Exam MSE Comments: Appears older than stated age, hair shaved into [place], gaunt appearing, irritable and angry and uncooperative at times Psychomotor activity is somewhat restless, verbally agitated Speech is loud, normal rate, not pressured I feel like shape, congruent affect, angry, irritable Alert and oriented to person, place, time, situation Intellectual functioning appears to be below average to average at best based on vocabulary, interview Thought process, linear but brief Thought content, no stated delusions, angry rants about hurting people if he does not get to an appointment for Subutex, no suicidal ideation although makes comments that he may hurt himself if he does not get back on Subutex, does not appear to be attending to any internal stimuli Insight and judgment appear to be poor Vitals/I&O/Wt Last Vital Signs Temp 98.7 F 11/28/20 05:07 Pulse 86 11/28/20 05:07 Resp 15 11/28/20 05:07 BP 141/93 11/28/20 05:07 Pulse Ox 97 11/28/20 05:07 Weight last 48 hrs Weight 68.039 kg Data NPU : 11/27/20 11:49 11/27/20 11:49 A&P Assessment and plan (1) Psychotic disorder: Status: Acute (2) Suicidal ideation: Status: Acute (3) Drug abuse: Status: Acute Additional A&P Information Patient presented to the emergency department requesting admission for auditory hallucinations and making suicidal statements. Patient became angry and irritable and stated that he would hurt someone or hurt himself if he does not get to a Subutex appointment today. Patient states that he had been out of his medication for a couple of weeks but states that he continues to have withdrawal symptoms despite being off of Subutex for a couple of weeks. Patient is making statements that he may not be safe to himself or others in his current state. INVOLUNTARY ADMIT to inpatient psychiatry START Lexapro 10 mg daily for mood START mirtazapine 45 mg at bedtime for mood Coordinate with social services counselor for post discharge mental health care follow-up, substance treatment, counseling Involuntary Hold Information 96 Hour Hold: 96 Hour Involuntary Admission: Yes 96 Hour Hold Ending Date: 12/01/20 96 Hour Hold Ending Time: 12:45 Attestations NPU Medical Necessity Statement*: Psychiatric hospitalization is indicated given patient's statement that he is not safe to himself or others at this time, medication stabilization, coordination for safe discharge Anticipate hospital stay to exceed 2 midnights Time Spent in Patient Care: Greater than 35 minutes (>than 50% of time spent in counselling and/or direct pt care on unit) . Coding Level of Care Code Acute Certified Ophthalmic Assistant for Chelle Honeycutt Diagnoses Psychotic disorder F29 Suicidal ideation R45.851 Drug abuse F19.10
[2020-11-28 13:06] VITALS: BP 134/90; PULSE 74; RESP 18; TEMP 36.3; O2SAT 92
[2020-11-28] MEDS: nicotine 21 mg Patch 1 PATCH TRANSDERMA (16:28)
[2020-11-28 20:53] VITALS: BP 140/80; PULSE 84; RESP 16; TEMP 36; O2SAT 97
[2020-11-28] MEDS: mirtazapine 15 mg Tablet 45 MG PO (21:42)
[2020-11-28] MEDS: escitalopram 10 mg Tablet PO (21:42)
[2020-11-28] MEDS: benztropine 1 mg Tablet 2 MG PO (21:42)
--- NOTE | 2020-11-28 22:00 | PC.NURSE ---
PM Assessment Pt is in the dayroom, watching TV, eating a snack. Pt denies pain, denies SI/HI/AH/Vh. Vital Signs are WNL. pt is aggrevated that he is still here. Stated he wants to be released on Sat. Complains of stomach irritation refused zofran at this time
[2020-11-28] MEDS: nicotine 2 mg Gum BUCCAL (22:36)
--- NOTE | 2020-11-29 00:12 | PC.NURSE ---
Addendum entered by Vicky Rosario RN 11/29/20 00:27: Physician contacted, ordered Ondansetron hcl 4mg IM once one. Med nurse will administer. Original Note: vomiting While rounding, pt was found vomiting on his bed, naked, and stated he had diarrhea. He is laying in his bed, calm at the moment. Provided clean scrubs, helped clean him up, gave cool wash cloth for forehead, notified Med Nurse.
[2020-11-29] MEDS: ondansetron 2 mg/ML SDV 2 mL 4 MG IM (00:28)
--- NOTE | 2020-11-29 02:50 | PC.NURSE ---
Nausia and vomiting subsided.
--- NOTE | 2020-11-29 02:50 | PC.NURSE ---
. called for order of zofran 4mg IM for vomiting. Given right vent glut @ 02:08
[2020-11-29 06:00] VITALS: BP 146/116; PULSE 77; RESP 16; TEMP 37.1; O2SAT 97
[2020-11-29] MEDS: docusate sodium 100 mg Capsule PO ×2 (09:21→17:58)
[2020-11-29] MEDS: pantoprazole DR 40 mg Tablet PO (09:21)
--- NOTE | 2020-11-29 10:44 | PM.NPN ---
Subjective NPU Subjective: Interval history: Patient is much more pleasant today lying in bed, denies any interval complaints and states that he is able to tolerate eating food much better with less nausea Denies any interval mood symptoms, denies any suicidal ideation Denies any psychotic symptoms Reports being compliant with medication and denies any medication side effects Mental Status Exam MSE Comments: Lying in bed, appropriately dressed in hospital scrubs, calm, cooperative, interactive, good eye contact Psychomotor activity is neither increased nor decreased, no agitation Speech is normal rate, normal volume, spontaneous, fair articulation, not pressured I feel much better, congruent affect, not labile Alert and oriented to person, place, time, situation Thought process, linear, no flight of ideas Thought content, no delusions, does not appear to be attending to any internal stimuli, no suicidal or homicidal ideation Insight and judgment appear to be fair to intact Vitals/I&O/Wt Last Vital Signs Temp 98.7 F 11/29/20 06:00 Pulse 77 11/29/20 06:00 Resp 16 11/29/20 06:00 BP 146/116 11/29/20 06:00 Pulse Ox 97 11/29/20 06:00 Weight last 48 hrs Weight 68.039 kg Data NPU : 11/27/20 11:49 11/27/20 11:49 A&P Assessment and plan (1) Psychotic disorder: Status: Acute (2) Suicidal ideation: Status: Acute (3) Drug abuse: Status: Acute Additional A&P Information Denies any interval psychotic symptoms, denies any suicidal ideation CONTINUE current medication, continue to monitor Anticipate discharge tomorrow to outpatient psychiatry appointment Involuntary Hold Information 96 Hour Hold: 96 Hour Involuntary Admission: Yes 96 Hour Hold Ending Date: 12/01/20 96 Hour Hold Ending Time: 12:45 Attestations NPU Medical Necessity Statement*: Continues to require psychiatric hospitalization for medication stabilization, coordination for safe discharge Coding Level of Care Code Acute Equine Manager for Chelle Fwd Diagnoses Psychotic disorder F29 Suicidal ideation R45.851 Drug abuse F19.10
[2020-11-29] MEDS: nicotine 2 mg Gum BUCCAL ×3 (12:35→20:44)
[2020-11-29 14:00] VITALS: BP 137/96; PULSE 65; RESP 16; TEMP 37.3; O2SAT 98
[2020-11-29] MEDS: mirtazapine 15 mg Tablet 45 MG PO (20:44)
[2020-11-29] MEDS: benztropine 1 mg Tablet 2 MG PO (20:44)
[2020-11-29] MEDS: ondansetron 4 MG Tablet PO (20:45)
[2020-11-29] MEDS: escitalopram 10 mg Tablet PO (20:45)
[2020-11-29 22:00] VITALS: BP 137/60; PULSE 73; RESP 14; TEMP 36.3; O2SAT 98
[2020-11-30 06:00] VITALS: BP 132/90; PULSE 87; RESP 15; TEMP 37.1; O2SAT 96
--- NOTE | 2020-11-30 07:14 | PC.RESP ---
SMOKING CESSATION INFORMATION SENT TO PATIENT.
--- NOTE | 2020-11-30 08:00 | PC.NURSE ---
Patient Behavior Patient started yelling out for people to leave him alone. He stated he just wanted to go to his room and sleep and that we keep waking him up. He was re directed to his room but he refused and continued to yell that we did not give a fuck about him. Security present, patient paced the halls for a few minutes then laid down in bed. Offered medication for anxiety but patient refused.
--- NOTE | 2020-11-30 08:32 | PM.NDC ---
Diagnoses at Discharge Discharge Diagnosis (1) Psychotic disorder: Status: Acute (2) Suicidal ideation: Status: Acute (3) Drug abuse: Status: Acute Reason for Visit Reason for Visit: Suicidal Hospital Course Hospital Course 45 year old male with unclear past psychiatric history although was reported to have major depressive disorder during behavioral health evaluation in September 2020 presented to the emergency department with auditory hallucinations and was providing vague responses with regards to suicidality at times stating that he was not suicidal and then subsequently stating that he would not be responsible for what he does if he leaves the hospital. Patient was reporting auditory hallucinations and states that his last use of methamphetamine was a few days before presenting to the emergency department. Patient subsequently denied suicidality and reported that he was only wanting to come into the hospital so he can go to an appointment the following day to restart his Subutex. Per chart review patient had been off of Subutex for several weeks and had not been to follow-up. Patient initially became irritable and angry but subsequently calm down. Patient was restarted on home medications which she tolerated with no reports of any medication side effects. Patient subsequently participate in unit milieu with no report of any behavioral disturbances until at the time of discharge when it appeared the patient was can be late for his appointment at [facility] to restart Subutex. Patient was not suicidal at the time of discharge and did not appear to pose an imminent threat of harm to self or others. Low to moderate risk of harm to self given no current suicidal ideation although patient has difficulty with low frustration tolerance as well as history of substance abuse which could lead to periods of disinhibition, unexpected impulsive behavior. Risk mitigation included psychiatric hospitalization, medication stabilization, recommendation to abstain from use of substances and alcohol as well as the need for compliance with his medication and medication management follow-up. Patient would also benefit from post discharge substance counseling/treatment in order to further mitigate his risk. Patient was able to communicate his understanding of the need to abstain from use of substances and alcohol as well as the need for compliance with medication, medication management and substance treatment/counseling in order to further mitigate his risk of harm to self and others. Involuntary Hold Information 96 Hour Hold: 96 Hour Involuntary Admission: Yes 96 Hour Hold Ending Date: 12/01/20 96 Hour Hold Ending Time: 12:45 Mental Status Exam MSE Comments: Standing at the nurses station, yelling because he is late for an appointment, upset but redirectable Psychomotor activity is somewhat increased, no agitation Speech is normal rate, normal volume, spontaneous, fair articulation, not pressured Angry and irritable affect, not labile Alert and oriented to person, place, time, situation Thought process, linear, no flight of ideas Thought content, no delusions, does not appear to be attending to any internal stimuli, no suicidal or homicidal ideation Insight and judgment appear to be fair to intact Discharge Data Vitals: Last Vital Signs Temp 98.8 F 11/30/20 06:00 Pulse 87 11/30/20 06:00 Resp 15 11/30/20 06:00 BP 132/90 11/30/20 06:00 Pulse Ox 96 11/30/20 06:00 Discharge Plan Discharge Patient Disposition: Home Condition: Stable Prescriptions: Continued ibuprofen 800 mg Tablet 800 mg PO Q8H PRN (Reason: Pain) RF: 0 Protonix 40 mg Tablet,Delayed Release (Dr/Ec) 40 mg PO DAILY RF: 0 benztropine 2 mg Tablet 2 mg PO BEDTIME RF: 0 Colace 100 mg Capsule 100 mg PO BID RF: 0 mirtazapine 45 mg Tablet 45 mg PO BEDTIME RF: 0 escitalopram oxalate 10 mg Tablet 10 mg PO BEDTIME RF: 0 buprenorphine HCl 8 mg Tablet, Sublingual 8 mg SUBLINGUAL TID MDD 15 RF: 0 Discharge Orders: Discharge Order (Routine); Ordered 11/30/20 Ordered By: Maddison Garcia Referrals: [facility] [Outside] Boris Benson MD [Physician] - 12/27/20 2:30 pm Discharge Diet: Regular Discharge Activity: Resume usual activity Patient Instructions: Opioid Safety Discharge Attestations NPU Time Spent in Discharge Care*: less than 30 min Status at Discharge: Cognitive status at discharge: cognitively intact, Behavioral status at discharge: cooperative, Functional status at discharge: independent ambulation Overall status at discharge: patient is back to baseline Coding Level of Care Code Acute Chg FW DC note Diagnoses Psychotic disorder F29 Suicidal ideation R45.851 Drug abuse F19.10
[2020-11-30] MEDS: nicotine 2 mg Gum BUCCAL (08:35)
[2020-11-30 08:37] VITALS: BP 132/90; PULSE 87; RESP 15; TEMP 37.1; O2SAT 96
== END 2020-11-30 08:42 | disposition home or self-care (01) | DRG 885 ==
LOC: ER 12:44 → NP 13:29
PROVIDERS: Admitting Provider Psychiatry & Neurology Psychiatry; Emergency Provider Emergency Medicine; Visit Provider Psychiatry & Neurology Psychiatry
DX: F29 Unspecified psychosis not due to a substance or known physiological condition (principal); R45.851 Suicidal ideations; F32.9 Major depressive disorder, single episode, unspecified; F15.10 Other stimulant abuse, uncomplicated; F17.210 Nicotine dependence, cigarettes, uncomplicated; F12.10 Cannabis abuse, uncomplicated; F19.10 Other psychoactive substance abuse, uncomplicated
CPT/HCPCS: 80053; 80306; 80307; 81003; 85025; 93005; 96372; 99285; J2405; Q0162

== ENCOUNTER → 2020-11-30 09:44 | Outpatient (BNVA) | payer OTHER, SELFPAY | PROVIDERS: Visit Provider Psychiatry & Neurology Psychiatry | DX: F11.20 Opioid dependence, uncomplicated (principal); F15.20 Other stimulant dependence, uncomplicated; F12.20 Cannabis dependence, uncomplicated | CPT/HCPCS: 80307 ==

== ENCOUNTER → 2020-12-07 11:13 | Outpatient (BNVA) | payer MEDICAID, SELFPAY | PROVIDERS: Visit Provider Psychiatry & Neurology Psychiatry | DX: F15.20 Other stimulant dependence, uncomplicated (principal); F11.20 Opioid dependence, uncomplicated; F12.20 Cannabis dependence, uncomplicated | CPT/HCPCS: 80307; 99214 ==

== ENCOUNTER → 2020-12-28 15:01 | Outpatient (BNVA) | payer MEDICAID, SELFPAY | PROVIDERS: Visit Provider Nurse Practitioner Family | DX: B18.2 Chronic viral hepatitis C (principal) | CPT/HCPCS: 82105; 87522; 87902 ==

== ENCOUNTER → 2021-01-11 13:23 | Outpatient (BNVA) | payer MEDICAID, SELFPAY | PROVIDERS: Visit Provider Psychiatry & Neurology Psychiatry | DX: F12.20 Cannabis dependence, uncomplicated (principal); F15.20 Other stimulant dependence, uncomplicated; F11.20 Opioid dependence, uncomplicated | CPT/HCPCS: 80307; 99214 ==

== ENCOUNTER → 2021-02-08 13:14 | Outpatient (BNVA) | payer MEDICAID, SELFPAY | PROVIDERS: Visit Provider Psychiatry & Neurology Psychiatry | DX: F15.20 Other stimulant dependence, uncomplicated (principal); F11.20 Opioid dependence, uncomplicated; F12.20 Cannabis dependence, uncomplicated | CPT/HCPCS: 80307; 99213 ==

== ENCOUNTER 2021-02-20 07:57 | Outpatient (CLI) | payer MEDICAID, SELFPAY ==
--- NOTE | 2021-02-20 08:00 | US_ITS ---
WS: [id number] RIGHT UPPER QUADRANT ULTRASOUND HISTORY: Hepatitis C COMPARISON: 02/25/2006 Liver: 17.0 cm in length. Liver is top normal size. No surface irregularity or nodularity. No mass or bile duct dilatation. Gallbladder: Normally distended gallbladder with no stones or wall thickening. CBD: 0.4 cm Pancreas: Completely obscured by bowel gas. Right kidney: 10.0 cm in length. Normal size and echogenicity. No hydronephrosis or mass. Aorta and IVC: Normal aorta. IVC is negative. No ascites. US/US liver [id number] IMPRESSION: 1. Normal gallbladder. 2. Pancreas completely obscured by bowel gas. 3. Normal liver.
== END 2021-02-20 07:58 | disposition home or self-care (01) ==
LOC: RAD 07:59
PROVIDERS: PCP Family Medicine Adult Medicine; Visit Provider Nurse Practitioner Family
DX: B19.20 Unspecified viral hepatitis C without hepatic coma (principal); Z20.822 Contact with and (suspected) exposure to COVID-19
CPT/HCPCS: 76705; 87635

== ENCOUNTER 2021-02-26 09:29 | Day surgery (SDC) | payer MEDICAID, SELFPAY ==
[2021-02-22 16:10] VITALS: BMI 30.8
--- NOTE | 2021-02-26 09:15 | W.PM.OPSFHP ---
Same Day Surgery H&P Indication for Procedure/HPI DATE OF PROCEDURE: February 26, 2021 CHIEF COMPLAINT/INDICATIONFOR SURGICAL PROCEDURE: Dysphagia PREOP DIAGNOSIS: Dysphagia PLANNED PROCEDRUE: Operation Date: 02/26/21 11:00 Proposed Procedures p EGD Dilation W/ Bougie [id number] R13.10(Not Applicable) - Papi Bustos MD Medications/Allergies* Home Medications Medication Instructions Recorded Confirmed Type benztropine 2 mg PO BEDTIME 11/27/20 02/22/21 History escitalopram oxalate 10 mg PO BEDTIME 11/27/20 02/22/21 History mirtazapine 45 mg PO BEDTIME 11/27/20 02/22/21 History buprenorphine HCl 8 mg sublingual 8 mg SUBLINGUAL TID tab 01/23/21 02/22/21 History tablet ibuprofen 800 mg tablet 800 mg PO Q6H 02/20/21 02/23/21 History Allergies/Adverse Reactions Allergy/AdvReac Type Severity Reaction Status Date / Time naloxone Allergy Severe ALGY-Swell Verified 02/22/21 16:12 Lip/Tongue/Throat Pertinent History/Comorbid Conditions* Medical History (Updated 02/20/21 @ 14:11 by Papi Bustos MD) Chronic GERD Hepatitis C Osteoarthritis of right knee Psychiatric care Social History Smoking and tobacco status: current every day smoker cigarettes Packs smoked per day: 0.5 Alcohol intake: never Pertinent Exam Findings alert, oriented x 3, clear to auscultation bilaterally, regular rate & rhythm, operative site marked and procedure specific exam findings Recommendations Surgery/Procedure today Coding Level of Care Code Acute Mental Health Professional for Chelle Honeycutt
[2021-02-26 10:18] VITALS: BP 136/91; PULSE 71; RESP 18; TEMP 36.8; O2SAT 96
[2021-02-26] MEDS: sodium chloride 0.9% 1,000 ML 30 ML IV (10:37)
--- NOTE | 2021-02-26 10:53 | ANES.PREANE2 ---
Pre-Anesthetic Assessment Pre-Anesthetic Assessment: Height/Weight: Height 1.88 m Weight 108.862 kg Temp Pulse Resp BP Pulse Ox 98.2 F 71 18 136/91 96 02/26/21 10:18 02/26/21 10:18 02/26/21 10:18 02/26/21 10:18 02/26/21 10:18 Preop Diagnosis: dysphagia Proposed Procedure: Operation Date: 02/26/21 11:00 Proposed Procedures p EGD Dilation W/ Bougie [id number] R13.10(Not Applicable) - Papi Bustos MD Was Beta Madeline taken within 24 hours: N/A Was Clonidine taken within 24 hours: N/A Last intake: Intake Last Liquid Date 02/25/21 Last Liquid Time 20:00 Last Solid Date 02/25/21 Last Solid Time 20:00 Social: Social History: Tobacco and No alcohol Exam: Pre-Anes Outpt Exam: alert, oriented x 3 and regular rate & rhythm Airway: Submandibular: WNL Cervical ROM: WNL MP: 2 Dentition: Chipped Pulmonary: Pulmonary: COPD Hepatic: Hepatic: Hepatitis (C) GI: GI: GERD Neuropsych: Neuropsych: Anxiety and Depression Comments: polysubstance abuse Anesthetic Plan: ASA status: 3 Anesthesia: MAC Risk of > 500 ml blood loss (7ml/kg in children): No Meds/Allergies Current Medications: Current Medications Generic Name Dose Route Start Last Admin Trade Name Freq PRN Reason Stop Dose Admin Sodium Chloride 1,000 mls @ 30 ml s/hr 02/26/21 09:45 02/26/21 10:37 Sodium Chloride 0.9% IV 30 mls/hr .Q24H RAOUL Administration PFSH Anesthesia PFSH: Medical History (Updated 02/20/21 @ 14:11 by Papi Bustos MD) Chronic GERD Hepatitis C Osteoarthritis of right knee Psychiatric care Social History Smoking and tobacco status: current every day smoker cigarettes Packs smoked per day: 0.5 Alcohol intake: never Data Anesthesia Cardiac Studies: No Data to Display
[2021-02-26 12:00] VITALS: BP 102/61; PULSE 68; RESP 16; TEMP 36.7; O2SAT 97
--- NOTE | 2021-02-26 12:06 | PM.PACU ---
PACU note Post-Anesthesia Exam: awake and vital signs stable Disposition: discharged
[2021-02-26 12:13] VITALS: BP 114/76; PULSE 64; RESP 16; O2SAT 94
[2021-02-27 11:19] LABS: H. Pylori / CLO Test Negative
== END 2021-02-26 12:40 | disposition home or self-care (01) ==
PROVIDERS: PCP Family Medicine Adult Medicine; Visit Provider Internal Medicine
DX: R13.10 Dysphagia, unspecified (principal); K29.70 Gastritis, unspecified, without bleeding; K44.9 Diaphragmatic hernia without obstruction or gangrene; K21.9 Gastro-esophageal reflux disease without esophagitis; Z86.19 Personal history of other infectious and parasitic diseases; M17.11 Unilateral primary osteoarthritis, right knee; F17.210 Nicotine dependence, cigarettes, uncomplicated; J44.9 Chronic obstructive pulmonary disease, unspecified; F41.9 Anxiety disorder, unspecified; F32.9 Major depressive disorder, single episode, unspecified
CPT/HCPCS: 43239; 87077; 96360; J2704; J7030

== ENCOUNTER 2021-10-24 13:32 | Emergency (ER) | payer MEDICAID, SELFPAY ==
[2021-10-24 13:38] VITALS: BP 124/82; PULSE 82; RESP 18; TEMP 36.3; O2SAT 95
--- NOTE | 2021-10-24 13:56 | W.ED.WOUNDLC ---
HPI - Wound/Laceration General: Chief Complaint: Extremity Injury, Upper Stated Complaint: Cut his right hand slicer Time Seen by Provider: 10/24/21 13:35 Source: patient Mode of arrival: ambulatory Limitations: no limitations History of Present Illness: Patient is a 46-year-old male who presents to ED today for evaluation of a right hand laceration that he sustained just prior to arrival after cutting it on a bagger meat. Last tetanus was approximately 4 to 5 years ago. Onset (ago): hour(s) Extremity Location: Right: hand Place: home Patient tetanus UTD: Yes Context: accidental Associated symptoms: Reports no associated symptoms Treatments prior to arrival: bandage Review of Systems Musc: Reports: extremity pain (R hand) Skin/Breast: Reports: other (R hand laceration) Neuro: Denies: numbness in extremities or sensory changes PFS ED PFSH: Medical History Chronic GERD Depression Hepatitis C History of hepatitis C Mid back pain, chronic Osteoarthritis of right knee Psychiatric care Social History Smoking and tobacco status: current every day smoker cigarettes Packs smoked per day: 0.5 Alcohol intake: never Physical Exam Const: COMMON NORMALS: no acute distress, no limitations and alert Extremity: GENERAL: Yes normal exam except as noted RIGHT UPPER EXTREMITY: Yes hand & digits Right hand and digits: Yes inspection (palmar laceration), Yes ROM exam (normal), Yes neurovascular exam (normal) and Yes tendon exam (no tendon involvement) Hand Right Front: 1. 4.5 cm superficial flap laceration Neuro: SENSORIUM/ORIENTATION: Yes alert Procedures Laceration Laceration 1: Site: hand Side (If applicable): right Size (cm): 4.5 Description: flap Depth: simple, single layer Local Anesthetic: lidocaine 1% Amount of anesthesia used (mL): 7.0 Pre-repair: wound explored and irrigated extensively Skin layer closed with: nylon Size (cm): 4-0 Number of sutures: 9 Technique: simple, interrupted Course Vital Signs: Vital signs: Vital Signs Temperature 97.4 F L 10/24/21 13:38 Pulse Rate 82 10/24/21 13:38 Respiratory Rate 18 10/24/21 13:38 Blood Pressure 124/82 10/24/21 13:38 Pulse Oximetry 95 10/24/21 13:38 MDM - Wound/Laceration Medical Decision Making Superficial flap laceration repaired as documented. NV intact. No XR indicated. Wound care discussed at home. Discharge Plan Discharge Patient Disposition: Home Clinical Impression: Laceration of right hand Qualifiers: Encounter type: initial encounter Foreign body presence: without foreign body Qualified Code(s): S61.411A - Laceration without foreign body of right hand, initial encounter Condition: Stable Prescriptions: No Action buprenorphine HCl 8 mg tablet, sublingual 8 mg sublingual TID 0RF celecoxib 200 mg capsule 200 mg PO BID Qty: 60 3RF pantoprazole 40 mg tablet,delayed release (DR/EC) 40 mg PO BID 0RF gabapentin 300 mg capsule 300 mg PO BID Qty: 60 3RF benztropine 2 mg Tablet 2 mg PO BEDTIME 0RF mirtazapine 45 mg Tablet 45 mg PO BEDTIME 0RF escitalopram oxalate 10 mg Tablet 10 mg PO BEDTIME 0RF Discharge Orders: Discharge ED (Routine); Ordered 10/24/21 Ordered By: Corinne Pinto Referrals: Sixto Grady MD [Primary Care Provider] - Patient Instructions: Care For Your Stitches (DC), Laceration (DC) Activity Restrictions/Additional Instructions: Keep wound/laceration clean with warm soap and water twice daily. Monitor for signs of infection such as redness, swelling, increased pain, or drainage. Please seek medical re-evaluation if these occur. If you received sutures today these will need to be removed (unless you were told by the provider that they are absorbable). The provider should have discussed with you the length of time until removal-7 TO 10 DAYS. You may return to the emergency department for this service. If your wound was closed with Steri-Strips or glue/adhesive these will fall off within the next week or so. Coding Level of Care Code ED Game Designer/Creative Director for Chelle Honeycutt
== END 2021-10-24 15:10 | disposition home or self-care (01) ==
PROVIDERS: Emergency Provider Physician Assistant; PCP Family Medicine Adult Medicine
DX: S61.411A Laceration without foreign body of right hand, initial encounter (principal); W31.89XA Contact with other specified machinery, initial encounter
CPT/HCPCS: 12002; 99283

== ENCOUNTER → 2022-01-02 10:58 | Outpatient (BNVA) | payer MEDICAID, SELFPAY | PROVIDERS: PCP Family Medicine Adult Medicine; Visit Provider Registered Nurse Neonatal Intensive Care | DX: M79.641 Pain in right hand (principal); M79.5 Residual foreign body in soft tissue | CPT/HCPCS: 73130 ==

== ENCOUNTER → 2022-07-09 14:38 | Outpatient (BNVA) | payer MEDICAID, SELFPAY | PROVIDERS: PCP Family Medicine Adult Medicine; Visit Provider Nurse Practitioner Family | DX: S59.901A Unspecified injury of right elbow, initial encounter (principal); W19.XXXA Unspecified fall, initial encounter | CPT/HCPCS: 73080 ==

== ENCOUNTER 2022-11-14 06:18 | Emergency (ER) | payer MEDICAID, SELFPAY ==
[2022-11-14 06:18] VITALS: BP 146/94; PULSE 58; RESP 18; TEMP 36.6; O2SAT 95; BMI 23.0
--- NOTE | 2022-11-14 06:48 | ED_ITS ---
HPI - Nausea/Vomiting/Diarrhea General: Chief complaint: Nausea/Vomiting/Diarrhea Stated complaint: DIARRHEA Time Seen by Provider: 11/14/22 06:18 Source: patient Mode of arrival: ambulatory History of Present Illness: 47-year-old male presents emergency room planing nausea vomiting diarrhea for last 4 to 5 days. He states he [place] he has been drinking water from the spraying. He has had a lot of loose stools usually just once a day he has not had any bloody diarrhea has been very nauseous he also attributes it to the fact that he ran out of his Suboxone several days ago and has not had a refill. He denies any fever sweats chills dysuria urgency or frequency mild abdominal discomfort. MD elicited complaint: nausea, vomiting and diarrhea Onset (ago): day(s) (-) Description of diarrhea: mucus and semi-solid Associated nausea: Yes Associated abdominal pain: Yes Location of pain: Diffuse Quality: cramping Exacerbating factors: none Relieving factors: none Associated symtoms: Reports nausea; Denies altered mental status, anxiety, bloating, change in vision, chest pain, cough, diaphoresis, decreased urine output, dizziness, dysuria, epistaxis, fatigue, fecal incontinence, fevers/chills, headache(s), anorexia, malaise, myalgias, numbness, palpitations, rash, short of breath, syncope, tenesmus, tinnitus or weakness Review of Systems Const: Denies: fever(s), chills, fatigue, malaise or diaphoresis Eyes: Denies: change in vision ENMT: Denies: tinnitus or epistaxis Card: Denies: chest pain, palpitations or syncope Resp: Denies: dyspnea, productive cough or non-productive cough GI: Reports: abdominal pain, nausea, vomiting and diarrhea; Denies: bloating or fecal incontinence : Denies: dysuria Skin/Breast: Denies: rash or pruritus Neuro: Denies: headache(s) or dizziness Psych: Denies: anxiety PFSH ED PFSH: Medical History Chronic GERD Depression Eczema Hepatitis C History of hepatitis C Osteoarthritis right knee and back Sprain and strain of right wrist Social History (Reviewed 11/14/22 @ 06:51 by LEIDY Rodriguez Smoking and tobacco status: current every day smoker cigarettes Packs smoked per day: 0.5 Alcohol intake: never Current occupation: odd jobs Physical Exam Const: COMMON NORMALS: no acute distress EXAM LIMITATIONS: no altered mental status GENERAL APPEARANCE: cooperative and comfortable ORIENTATION/CONSCIOUSNESS: Yes awake, Yes oriented to person, Yes oriented to place and Yes oriented to time HENMT: COMMON NORMALS: normocephalic, atraumatic and hearing grossly normal bilaterally HEAD & SCALP: normocephalic and atraumatic Resp: COMMON NORMALS: normal respiratory effort, No retractions, No use of accessory muscles and clear to auscultation bilaterally AUSCULTATION: clear to auscultation bilaterally Cardio: COMMON NORMALS: regular rate, regular rhythm and No murmurs present (Cardio) RATE: regular rate RHYTHM: regular rhythm GI: COMMON NORMALS: Soft to palpation and No hepatosplenomegaly present AUSCULTATION: Yes normoactive bowel sounds PALPATION: Yes Soft to palpation, No Tenderness to palpation present (GI), No Guarding due to palpation present (GI) and Yes No hepatosplenomegaly present Extremity: COMMON NORMALS: normal to inspection, capillary refill normal, no clubbing, cyanosis or edema, no calf tenderness and no pedal edema Neuro: SENSORIUM/ORIENTATION: Yes oriented to person, Yes oriented to place and Yes oriented to time Skin: COMMON NORMALS: no rashes or lesions noted GENERAL SKIN EXAM: no rashes or lesions noted Course Vital Signs: Vital signs: Vital Signs Temperature 98 F 11/14/22 06:18 Pulse Rate 65 11/14/22 09:48 Respiratory Rate 18 11/14/22 06:18 Blood Pressure 133/90 11/14/22 09:48 Pulse Oximetry 90 11/14/22 09:48 MDM - Nausea/Vomiting/Diarrhea Medical Decision Making Symptoms improved after IV fluids. Recommend clear liquid diet for next several days avoid drinking unknown water sources. He can use antiemetics as needed. Also recommend he follow-up with his doctor usually prescribes the Suboxone for refills to reinitiate. We will contact patient with results of stool study when available. Medical Records I reviewed the patient's medical records. Lab Data I reviewed the patient's lab results. 11/14/22 07:12 11/14/22 07:12 Laboratory Results WBC 9.8 10^3/uL (4.0-10.0) 11/14/22 07:12 RBC 5.03 10^6/uL (4.1-5.3) 11/14/22 07:12 Hgb 15.7 g/dL (11.7-16.6) 11/14/22 07:12 Hct 47.2 % (42.0-52.0) 11/14/22 07:12 MCV 93.8 fl (80-94) 11/14/22 07:12 MCH 31.2 pg (28.0-34.0) 11/14/22 07:12 MCHC 33.3 g/dL (30.0-36.0) 11/14/22 07:12 RDW 13.9 % (12.1-15.1) 11/14/22 07:12 Plt Count 278 10^3/cmm (130-400) 11/14/22 07:12 MPV 10.3 fL (7.4-10.4) 11/14/22 07:12 Neut % (Auto) 42.4 % 11/14/22 07:12 Lymph % (Auto) 49.1 % 11/14/22 07:12 [place] % (Auto) 6.0 % 11/14/22 07:12 Eos % (Auto) 1.8 % 11/14/22 07:12 Baso % (Auto) 0.5 % 11/14/22 07:12 Neut # (Auto) 4.16 10^3/uL (1.8-7.7) 11/14/22 07:12 Lymph # (Auto) 4.8 10^3/uL (0.8-4.8) 11/14/22 07:12 [place] # (Auto) 0.6 10^3/uL (0.2-0.9) 11/14/22 07:12 Eos # (Auto) 0.2 10^3/uL (0.0-0.8) 11/14/22 07:12 Baso # (Auto) 0.1 10^3/uL (0.0-0.1) 11/14/22 07:12 Nucleated RBC % (auto) 0 % 11/14/22 07:12 Nucleated RBCs # 0.0 /100WBC 11/14/22 07:12 Sodium 140 mmol/L (136-145) 11/14/22 07:12 Potassium 3.8 mmol/L (3.5-5.1) 11/14/22 07:12 Chloride 101 mmol/L (98-107) 11/14/22 07:12 Carbon Dioxide 28 mmol/L (22-29) 11/14/22 07:12 Anion Gap 14.8 (5-19) 11/14/22 07:12 BUN 9 mg/dL (6-20) 11/14/22 07:12 Creatinine 1.1 mg/dL (0.7-1.2) 11/14/22 07:12 GFR Calculation 72.1 mL/min (90-130) L 11/14/22 07:12 Glucose 113 mg/dL (65-115) 11/14/22 07:12 Calculated Osmolality 289 mOsm/kg (285-295) 11/14/22 07:12 Calcium 9.4 mg/dL (8.5-10.5) 11/14/22 07:12 Total Bilirubin 0.8 mg/dL (0.15-1.2) 11/14/22 07:12 AST 20 U/L (0-40) 11/14/22 07:12 ALT 12 U/L (0-41) 11/14/22 07:12 Alkaline Phosphatase 71 U/L (40-130) 11/14/22 07:12 Total Protein 8.6 g/dL (6.6-8.7) 11/14/22 07:12 Albumin 4.9 g/dL (3.5-5.2) 11/14/22 07:12 Globulin 3.7 g/dL (1.3-4.6) 11/14/22 07:12 Urine Color Dark yellow (Yellow) 11/14/22 07:00 Urine Appearance Clear (CLEAR) 11/14/22 07:00 Urine pH 6 (5-7) 11/14/22 07:00 Ur Specific [place] 1.030 (1.005-1.030) 11/14/22 07:00 Urine Protein Neg (Negative) 11/14/22 07:00 Urine Glucose (UA) Norm (Normal) 11/14/22 07:00 Urine Ketones Negative (Negative) 11/14/22 07:00 Urine Blood Neg (Negative) 11/14/22 07:00 Urine Nitrate Negative (Negative) 11/14/22 07:00 Urine Bilirubin Neg (Negative) 11/14/22 07:00 Urine Urobilinogen 1 mg/dL (Negative) H 11/14/22 07:00 Ur Leukocyte Esterase Negative (Negative) 11/14/22 07:00 Discharge Plan Discharge Patient Disposition: Home Clinical Impression: Gastroenteritis, Opioid use disorder, severe, dependence Condition: Stable Prescriptions: New ondansetron HCl 4 mg tablet 4 mg PO Q6H PRN (Reason: nausea and vomiting) Qty: 20 0RF No Action buprenorphine HCl 8 mg tablet, sublingual 8 mg sublingual TID triamcinolone acetonide 0.1 % cream 1 applic topical DAILY Qty: 30 0RF celecoxib 200 mg capsule 200 mg PO BID Qty: 60 0RF pantoprazole 40 mg tablet,delayed release (DR/EC) See Rx Instructions .ROUTE .COMPLEX Qty: 30 3RF Dose Instruction: TAKE 1 TABLET BY MOUTH DAILY NEEDED FOR ACID REFLUX Rx Instructions: TAKE 1 TABLET BY MOUTH DAILY NEEDED FOR ACID REFLUX gabapentin 300 mg capsule See Rx Instructions .ROUTE .COMPLEX Qty: 60 3RF Dose Instruction: TAKE 1 CAPSULE BY MOUTH TWO TIMES A DAY Rx Instructions: TAKE 1 CAPSULE BY MOUTH TWO TIMES A DAY benztropine 2 mg Tablet 2 mg PO BEDTIME mirtazapine 45 mg Tablet 45 mg PO BEDTIME escitalopram oxalate 10 mg Tablet 10 mg PO BEDTIME Discharge Orders: Discharge ED (Routine); Ordered 11/14/22 Ordered By: Mario Mario Referrals: Sixto Grady MD [Primary Care Provider] - Discharge Diet: Usual diet Discharge Activity: Resume usual activity Patient Instructions: Opioid Safety, Pain Management Activity Restrictions/Additional Instructions: Recommend clear liquid diet for next 24 to 48 hours and advance as tolerated. You can use the Zofran (ondansetron) as needed for nausea and vomiting. Stool c ultures were done in the emergency room we will contact you with results when they are available. If you have significant bloody diarrhea recheck. Recommend you follow-up with the physician who usually prescribes your Suboxone regarding resuming that medication. Coding Level of Care Code ED Clinical Rehabilitation Liaison for Chelle Honeycutt
[2022-11-14 07:03] VITALS: BP 146/94
[2022-11-14 07:08] LABS: Add Urine Microscopic? NO; Charge for UA Resulting for Rev
[2022-11-14 07:10] LABS: Blood Urine Neg (Negative); Glucose Urine UA Norm (Normal); Ketones Urine Negative (Negative); Protein Urine Neg (Negative); Urine Appearance Clear (CLEAR); Urine Color Dark Yellow (Yellow); pH Urine 6 (5-7)
[2022-11-14 07:11] LABS: Bilirubin Urine Neg (Negative); Leukocyte Esterase Urine Negative (Negative); Nitrate Urine Negative (Negative); Urobilinogen Urine 1 mg/dL (Negative)
[2022-11-14] MEDS: sodium chloride 0.9% 1,000 ML 999 ML IV ×2 (07:21→08:58)
[2022-11-14 07:25] LABS: Basophils # 0.1 10^3/uL (0.0-0.1); Basophils % 0.5 %; Eosinophils # 0.2 10^3/uL (0.0-0.8); Eosinophils % 1.8 %; Hematocrit 47.2 % (42.0-52.0); Hemoglobin 15.7 g/dL (11.7-16.6); Lymphocytes # 4.8 10^3/uL (0.8-4.8); Lymphocytes % 49.1 %; Mean Corpuscular HGB Conc 33.3 g/dL (30.0-36.0); Mean Corpuscular Hemoglobin 31.2 pg (28.0-34.0); Mean Corpuscular Volume 93.8 fl (80-94); Mean Platelet Volume 10.3 fL (7.4-10.4); Monocytes # 0.6 10^3/uL (0.2-0.9); Neutrophils # 4.16 10^3/uL (1.8-7.7); Neutrophils % 42.4 %; Nucleated Red Blood Cells % 0 %; Platelet Count 278 10^3/cmm (130-400); Red Blood Count 5.03 10^6/uL (4.1-5.3); Red Cell Distribution Width 13.9 % (12.1-15.1); White Blood Count 9.8 10^3/uL (4.0-10.0)
[2022-11-14 07:48] LABS: Alanine Aminotransferase 12 U/L (0-41); Albumin Level 4.9 g/dL (3.5-5.2); Alkaline Phosphatase 71 U/L (40-130); Anion Gap 14.8 (5-19); Aspartate Amino Transferase 20 U/L (0-40); Blood Urea Nitrogen 9 mg/dL (6-20); Calcium 9.4 mg/dL (8.5-10.5); Carbon Dioxide 28 mmol/L (22-29); Chloride 101 mmol/L (98-107); Globulin 3.7 g/dL (1.3-4.6); Glomerular Filtration Rate 72.1 mL/min (90-130); Glucose 113 mg/dL (65-115); Osmolality Calculated 289 mOsm/kg (285-295); Potassium 3.8 mmol/L (3.5-5.1); Sodium 140 mmol/L (136-145); Total Bilirubin 0.8 mg/dL (0.15-1.2); Total Protein 8.6 g/dL (6.6-8.7)
[2022-11-14 09:48] VITALS: BP 133/90; PULSE 65; O2SAT 90
== END 2022-11-14 09:57 | disposition home or self-care (01) ==
PROVIDERS: Emergency Provider Family Medicine; PCP Family Medicine Adult Medicine
DX: K52.9 Noninfective gastroenteritis and colitis, unspecified (principal); F11.20 Opioid dependence, uncomplicated; Z86.19 Personal history of other infectious and parasitic diseases; F17.210 Nicotine dependence, cigarettes, uncomplicated
CPT/HCPCS: 80053; 81003; 85025; 87506; 96360; 96361; 99284; J7030

== ENCOUNTER 2022-12-02 21:58 | Emergency (ER) | payer MEDICAID, SELFPAY ==
[2022-12-02 22:03] VITALS: BMI 26.3
[2022-12-02 22:05] VITALS: BP 140/101; PULSE 79; RESP 16; TEMP 37.1; O2SAT 96
--- NOTE | 2022-12-02 22:12 | W.ED.PSYCHS ---
HPI - Psych General: Chief Complaint: Psychiatric Symptoms Stated Complaint: SI Time Seen by Provider: 12/02/22 21:59 Source: patient Mode of arrival: ambulatory Limitations: no limitations History of Present Illness: 47-year-old male states that he has had suicidal thoughts over the last 2 days. He states he just does not feel like life is worth living anymore he has had a plan of jumping off a bridge or building. He denies any worsening or improving factors. Associated symptoms: Reports depression and suicidal ideation Review of Systems Const: Denies: fever(s), chills, body aches or change in appetite ENMT: Denies: throat pain or dental pain Card: Denies: chest pain Resp: Denies: dyspnea GI: Denies: abdominal pain, nausea, vomiting or diarrhea Musc: Denies: neck pain or back pain Skin/Breast: Denies: rash Neuro: Denies: headache(s) Psych: Reports: depression and suicidal ideation [facility] ED PFSH: Medical History Chronic GERD Depression Eczema Hepatitis C History of hepatitis C Osteoarthritis right knee and back Sprain and strain of right wrist Social History Smoking and tobacco status: current every day smoker cigarettes Packs smoked per day: 0.5 Alcohol intake: never Current occupation: odd jobs Physical Exam Const: COMMON NORMALS: no acute distress, patient oriented x3 and healthy appearing HENMT: COMMON NORMALS: normocephalic and atraumatic HEAD & SCALP: normocephalic and atraumatic Eye: COMMON NORMALS: conjunctivae normal CONJUNCTIVA: Yes conjunctivae normal Neck/C-Spine: COMMON NORMALS: full ROM and supple Chest: COMMONS NORMALS: normal inspection of the chest Resp: COMMON NORMALS: normal respiratory effort Cardio: COMMON NORMALS: regular rate, regular rhythm and No murmurs present (Cardio) RATE: regular rate RHYTHM: regular rhythm GI: INSPECTION: Yes normal to inspection Extremity: COMMON NORMALS: normal to inspection and full ROM Neuro: COMMON NORMALS: patient oriented x3, moves all extremities and no focal motor deficits Psych: COMMON NORMALS: mental status grossly normal, Normal thought process present and cooperative THOUGHT PROCESS: Normal thought process present THOUGHT CONTENT: Yes Suicidality present Skin: COMMON NORMALS: no rashes or lesions noted and no wounds GENERAL SKIN EXAM: no rashes or lesions noted Course Vital Signs: Vital signs: Vital Signs Temperature 98.8 F 12/02/22 22:05 Pulse Rate 73 12/03/22 17:15 Respiratory Rate 16 12/03/22 17:15 Blood Pressure 126/89 12/03/22 17:15 Pulse Oximetry 100 12/03/22 17:15 Oxygen Delivery Me thod Room Air 12/03/22 15:47 MDM - Psych Medical Decision Making Patient presents here with suicidal ideation patient placed on 96 he is medically cleared will transfer due to bed availability. Medical Records I reviewed the patient's medical records. Lab Data I reviewed the patient's lab results. 12/02/22 22:50 12/02/22 22:50 Laboratory Results WBC 8.4 10^3/uL (4.0-10.0) 12/02/22 22:50 RBC 4.19 10^6/uL (4.1-5.3) 12/02/22 22:50 Hgb 13.2 g/dL (11.7-16.6) 12/02/22 22:50 Hct 40.1 % (42.0-52.0) L 12/02/22 22:50 MCV 95.7 fl (80-94) H 12/02/22 22:50 MCH 31.5 pg (28.0-34.0) 12/02/22 22:50 MCHC 32.9 g/dL (30.0-36.0) 12/02/22 22:50 RDW 14.5 % (12.1-15.1) 12/02/22 22:50 Plt Count 214 10^3/cmm (130-400) 12/02/22 22:50 MPV 10.3 fL (7.4-10.4) 12/02/22 22:50 Neut % (Auto) 44.4 % 12/02/22 22:50 Lymph % (Auto) 46.1 % 12/02/22 22:50 Mathews % (Auto) 6.5 % 12/02/22 22:50 Eos % (Auto) 2.3 % 12/02/22 22:50 Baso % (Auto) 0.5 % 12/02/22 22:50 Neut # (Auto) 3.72 10^3/uL (1.8-7.7) 12/02/22 22:50 Lymph # (Auto) 3.9 10^3/uL (0.8-4.8) 12/02/22 22:50 Mathews # (Auto) 0.5 10^3/uL (0.2-0.9) 12/02/22 22:50 Eos # (Auto) 0.2 10^3/uL (0.0-0.8) 12/02/22 22:50 Baso # (Auto) 0.0 10^3/uL (0.0-0.1) 12/02/22 22:50 Nucleated RBC % (auto) 0 % 12/02/22 22:50 Nucleated RBCs # 0.0 /100WBC 12/02/22 22:50 Sodium 139 mmol/L (136-145) 12/02/22 22:50 Potassium 3.9 mmol/L (3.5-5.1) 12/02/22 22:50 Chloride 104 mmol/L (98-107) 12/02/22 22:50 Carbon Dioxide 27 mmol/L (22-29) 12/02/22 22:50 Anion Gap 11.9 (5-19) 12/02/22 22:50 BUN 11 mg/dL (6-20) 12/02/22 22:50 Creatinine 1.5 mg/dL (0.7-1.2) H 12/02/22 22:50 GFR Calculation 50.4 mL/min (90-130) L 12/02/22 22:50 Glucose 95 mg/dL (65-115) 12/02/22 22:50 Calculated Osmolality 287 mOsm/kg (285-295) 12/02/22 22:50 Calcium 8.9 mg/dL (8.5-10.5) 12/02/22 22:50 Total Bilirubin 0.3 mg/dL (0.15-1.2) 12/02/22 22:50 AST 19 U/L (0-40) 12/02/22 22:50 ALT 15 U/L (0-41) 12/02/22 22:50 Alkaline Phosphatase 55 U/L (40-130) 12/02/22 22:50 Total Protein 6.8 g/dL (6.6-8.7) 12/02/22 22:50 Albumin 4.1 g/dL (3.5-5.2) 12/02/22 22:50 Globulin 2.7 g/dL (1.3-4.6) 12/02/22 22:50 Salicylates < 0.3 mg/dL (3-10) L 12/02/22 22:50 Urine Opiates Screen Negative ng/mL (Negative) 12/02/22 22:15 Acetaminophen < 5.0 ug/mL (10-30) L 12/02/22 22:50 Ur Barbiturates Screen Negative ng/mL (Negative) 12/02/22 22:15 Ur Phencyclidine Scrn Negative ng/mL (Negative) 12/02/22 22:15 Ur Amphetamines Screen Positive ng/mL (Negative) H 12/02/22 22:15 U Benzodiazepines Scrn Negative ng/mL (Negative) 12/02/22 22:15 Urine Cocaine Screen Negative ng/mL (Negative) 12/02/22 22:15 U Marijuana (THC) Screen Positive ng/mL (Negative) H 12/02/22 22:15 Ethyl Alcohol < 10 mg/dL (0-10) 12/02/22 22:50 SARS-CoV-2 Ag (Rapid) negative (Negative) 12/02/22 22:22 EKG Data EKG 1: I personally reviewed and interpreted this EKG as follows: EKG interpretation date: 12/02/22 EKG interpretation time: 22:39 Interpretation: nsr hr [address] or t wave abnormalities qrs 105 qtc 412 Discharge Plan Discharge Patient Disposition: Xfer Short-Term Hosp Clinical Impression: Suicidal ideation Condition: Stable Referrals: Sixto Grady MD [Primary Care Provider] - Coding Level of Care Code ED K[employer]ners Helper for Chg Yinka
[2022-12-02 22:21] VITALS: BP 142/102; RESP 16
[2022-12-02 22:32] LABS: Amphetamines Screen Urine Positive (Negative); Barbiturates Screen Urine Negative (Negative); Benzodiazepines Screen Urine Negative (Negative); Cocaine Screen Urine Negative (Negative); Opiate Screen Urine Negative (Negative); PCP Screen Urine Negative (Negative); THC Screen Urine Positive (Negative)
--- NOTE | 2022-12-02 22:35 | ECG_ITS ---
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 Measurements Intervals [place] Rate: 79 P: 29 OK: 165 QRS: -38 QRSD: 105 T: 64 QT: 377 QTc: 434 Interpretive Statements SINUS RHYTHM LEFT AXIS DEVIATION [QRS AXIS < -30] Compared to ECG 11/27/2020 11:58:57 Left-axis deviation now present Electronically Signed On 12-03-2022 9:52:20 CDT by Ninoska Leong M.D. [id number]
--- NOTE | 2022-12-02 22:38 | PC.NURSE ---
96 Pt served with copy of 96HH Rights by this RN and security. All questions answered. Explained to pt that he may be transferred due to high volume of NPU pts. Pt is agreeable at this time.
[2022-12-02 22:50] LABS: SARS Covid-2 Antigen negative (Negative)
[2022-12-02 23:06] LABS: Basophils % 0.5 %; Eosinophils # 0.2 10^3/uL (0.0-0.8); Eosinophils % 2.3 %; Hematocrit 40.1 % (42.0-52.0); Hemoglobin 13.2 g/dL (11.7-16.6); Lymphocytes # 3.9 10^3/uL (0.8-4.8); Lymphocytes % 46.1 %; Mean Corpuscular HGB Conc 32.9 g/dL (30.0-36.0); Mean Corpuscular Hemoglobin 31.5 pg (28.0-34.0); Mean Corpuscular Volume 95.7 fl (80-94); Mean Platelet Volume 10.3 fL (7.4-10.4); Monocytes # 0.5 10^3/uL (0.2-0.9); Monocytes % 6.5 %; Neutrophils # 3.72 10^3/uL (1.8-7.7); Neutrophils % 44.4 %; Nucleated Red Blood Cells % 0 %; Platelet Count 214 10^3/cmm (130-400); Red Blood Count 4.19 10^6/uL (4.1-5.3); Red Cell Distribution Width 14.5 % (12.1-15.1); White Blood Count 8.4 10^3/uL (4.0-10.0)
[2022-12-02 23:25] LABS: Alanine Aminotransferase 15 U/L (0-41); Albumin Level 4.1 g/dL (3.5-5.2); Alkaline Phosphatase 55 U/L (40-130); Anion Gap 11.9 (5-19); Aspartate Amino Transferase 19 U/L (0-40); Blood Urea Nitrogen 11 mg/dL (6-20); Calcium 8.9 mg/dL (8.5-10.5); Carbon Dioxide 27 mmol/L (22-29); Chloride 104 mmol/L (98-107); Globulin 2.7 g/dL (1.3-4.6); Glomerular Filtration Rate 50.4 mL/min (90-130); Glucose 95 mg/dL (65-115); Osmolality Calculated 287 mOsm/kg (285-295); Potassium 3.9 mmol/L (3.5-5.1); Sodium 139 mmol/L (136-145); Total Bilirubin 0.3 mg/dL (0.15-1.2); Total Protein 6.8 g/dL (6.6-8.7)
[2022-12-02 23:29] LABS: Acetaminophen < 5.0 ug/mL (10-30); Alcohol Level < 10 mg/dL (0-10); Salicylate < 0.3 mg/dL (3-10)
[2022-12-03] MEDS: benztropine 1 mg Tablet PO ×2 (00:56→11:26)
[2022-12-03] MEDS: mirtazapine 15 mg Tablet 45 MG PO (00:56)
[2022-12-03] MEDS: pantoprazole DR 40 mg Tablet PO (00:57)
[2022-12-03 04:39] VITALS: BP 156/106; PULSE 57; RESP 18; O2SAT 97
[2022-12-03 06:26] VITALS: BP 135/100; PULSE 57; RESP 18; O2SAT 97
--- NOTE | 2022-12-03 07:00 | PC.NURSE ---
Report given to KRISTA Colon @ [phone]
[2022-12-03] MEDS: nicotine 14 mg Patch 1 PATCH TRANSDERMA (07:46)
--- NOTE | 2022-12-03 09:47 | PC.PHAR ---
pt states he takes care of his own medications-pt states he hasnt taken his buprenorphine 8mg tid in 2 weeks wick cutter states last filled 08/2022 30d/s-wick cutter states last filled protonix 40mg bid-mirtazapine 45mg hs,lexapro 10mg daily and benztropine 1mg bid, gabapentin 300mg bid all filled 10/10/22 30d/s and has refills except gabapentin no refills-doxepin 50mg hs filled 09/28/22 30d/s has refills-notes are made in the pharmacy comments
--- NOTE | 2022-12-03 10:58 | DCPLANNER ---
manager documentation was asked to look for placement for patient. manager documentation called and faxed the following facilities looking for placement: [facility] - will not accept, patient is not voluntary [facility] - 10:30 - full [facility] - 10:30 - full [facility] - will not accept 96 hour paperwork from [facility] - will not accept [facility] - will not [facility] patient is not voluntary [facility] - 10:36 - spoke with Sydni - can fax paperwork [facility] - to [facility] - 10:37 spoke with Yue - can fax paperwork [facility] - 10:38 - spoke with Karen - can fax paperwork [facility] - 10:41 - paperwork is still being reviewed [facility] - 10:52 - no beds [facility] - 10:44 - paperwork is still being reviewed [facility] - 15:56 - [facility] - no beds [facility] - 10:57 - [facility] - can fax paperwork
[2022-12-03] MEDS: ondansetron 2 mg/ML SDV 2 mL 4 MG IM (11:26)
[2022-12-03 15:47] VITALS: BP 126/89; PULSE 73; RESP 16; O2SAT 100
[2022-12-03 17:15] VITALS: BP 126/89; PULSE 73; RESP 16; O2SAT 100
== END 2022-12-03 17:19 | disposition short-term general hospital (02) ==
PROVIDERS: Emergency Provider Emergency Medicine; PCP Family Medicine Adult Medicine
DX: R45.851 Suicidal ideations (principal); F17.210 Nicotine dependence, cigarettes, uncomplicated
CPT/HCPCS: 36415; 80053; 80306; 80307; 85025; 87426; 93005; 96372; 99284; J2405

== ENCOUNTER 2022-12-28 18:38 | Emergency (ER) | payer MEDICAID, SELFPAY ==
[2022-12-28 18:44] VITALS: BP 138/92; PULSE 80; RESP 16; TEMP 36.8; O2SAT 97; BMI 27.7
--- NOTE | 2022-12-28 19:56 | ED_ITS ---
HPI - Alcohol General: Chief Complaint: Alcohol Stated Complaint: sob/dizzy Time Seen by Provider: 12/28/22 19:56 History of Present Illness: 47-year-old homeless gentleman presenting with cough. His concerns. He does endorse drinking however does not appear clinically intoxicated. He is concerned about shortness of breath and low back pain. Moderate intensity symptoms. Persistent course of weeks. No other specific changes in health, exacerbating, or alleviating factors identified. Review of Systems General: Reports: 10 or more systems reviewed and unremarkable except in HPI and below PFSH ED PFSH: Medical History Chronic GERD Depression Eczema Hepatitis C History of hepatitis C Osteoarthritis right knee and back Sprain and strain of right wrist Social History Smoking and tobacco status: current every day smoker cigarettes Packs smoked per day: 0.5 Alcohol intake: never Current occupation: odd jobs Physical Exam Const: COMMON NORMALS: alert GENERAL APPEARANCE: cooperative and well developed HENMT: COMMON NORMALS: normocephalic and atraumatic HEAD & SCALP: normocephalic and atraumatic Eye: COMMON NORMALS: conjunctivae normal CONJUNCTIVA: Yes conjunctivae normal SCLERA: sclerae normal Neck/C-Spine: COMMON NORMALS: supple GENERAL: Yes trachea midline Resp: COMMON NORMALS: normal respiratory effort EFFORT & INSPECTION: Yes able to speak in complete sentences AUSCULTATION: rhonchi Cardio: COMMON NORMALS: regular rate and regular rhythm RATE: regular rate RHYTHM: regular rhythm GI: COMMON NORMALS: Soft to palpation PALPATION: Yes Soft to palpation and No Tenderness to palpation present (GI) Extremity: GENERAL: Yes normal exam except as noted and No edema Neuro: COMMON NORMALS: moves all extremities SENSORIUM/ORIENTATION: Yes alert and No Orientation impaired Psych: COMMON NORMALS: denies homicidal ideation and denies suicidal ideation Course Vital Signs: Vital signs: Vital Signs Temperature 98.3 F 12/28/22 18:44 Pulse Rate 80 12/28/22 18:44 Respiratory Rate 16 12/28/22 18:44 Blood Pressure 138/92 12/28/22 18:44 Pulse Oximetry 97 12/28/22 18:44 Oxygen Delivery Me thod Room Air 12/28/22 18:44 MDM - Alcohol Medical Decision Making 47-year-old gentleman presenting with generalized illness and concern for respiratory symptoms. He does consume tobacco products. Exam as above. Nontoxic. No supplemental oxygen requirement. I ordered evaluation and treatment however patient subsequently decided that he wanted to leave. Exhibits no evidence of clinical intoxication. He admits with a steady gait. He can make medical decisions and has capacity. He left AGAINST MEDICAL ADVICE. Medical Records I reviewed the patient's medical records. Lab Data I reviewed the patient's lab results. Radiology Impressions Chest X-Ray 12/28/22 19:57 IMPRESSION: No acute findings. Lumbar Spine X-Ray 12/28/22 20:26 IMPRESSION: No acute findings. Discharge Plan Discharge Patient Disposition: Left Against Medical Advice Clinical Impression: Cough Condition: Stable Prescriptions: No Action buprenorphine HCl 8 mg tablet, sublingual 8 mg sublingual TID mirtazapine 45 mg Tablet 45 mg PO BEDTIME escitalopram oxalate 10 mg Tablet 10 mg PO DAILY ondansetron HCl 4 mg tablet 4 mg PO Q6H PRN (Reason: nausea and vomiting) Qty: 20 0RF doxepin 50 mg Capsule 50 mg PO BEDTIME Cogentin 1 mg Tablet 2 mg PO BEDTIME pantoprazole 40 mg tablet,delayed release (DR/EC) 40 mg PO BID gabapentin 300 mg capsule 300 mg PO BID Referrals: Sixto Grady MD [Primary Care Provider] - Coding Level of Care Code ED Commissary Representative for Chelle Honeycutt
--- NOTE | 2022-12-28 19:57 | XRR_ITS ---
PROCEDURE INFORMATION: Exam: XR Chest Exam date and time: 12/28/2022 8:01 PM Age: 47 years old Clinical indication: Pain; Cough and shortness of breath; Chest pressure; Additional info: SOB, cough TECHNIQUE: Imaging protocol: Radiologic exam of the chest. Views: 1 view. COMPARISON: No relevant prior studies available. FINDINGS: Lungs: Unremarkable. No consolidation. Pleural spaces: Unremarkable. No pleural effusion. No pneumothorax. Heart/Mediastinum: Unremarkable. No cardiomegaly. Bones/joints: Unremarkable. XR/XR chest 1V portable [id number] IMPRESSION: No acute findings.
--- NOTE | 2022-12-28 20:26 | XRR_ITS ---
PROCEDURE INFORMATION: Exam: XR Lumbosacral Spine Exam date and time: 12/28/2022 8:39 PM Age: 47 years old Clinical indication: Low back pain TECHNIQUE: Imaging protocol: Radiologic exam of the lumbosacral spine. Views: 2 or 3 views. COMPARISON: No relevant prior studies available. FINDINGS: Bones/joints: 5 degrees leftward lumbar curvature. The vertebral body stature is maintained. No fracture or subluxation. Moderate disc space narrowing at L4-L5 and L5-S1. Mild degenerative endplate changes at all lumbar levels. Soft tissues: Unremarkable. XR/XR lumbar spine 2-3V* [id number] IMPRESSION: No acute findings.
--- NOTE | 2022-12-28 22:36 | PC.NURSE ---
Pt came back to room and then decided to leave AMA at 2103, stating that he didn't want to wait and wanted to go get food. Refused to be evaled or sign [place] papers.
== END 2022-12-28 22:40 | disposition left against medical advice (07) ==
PROVIDERS: Emergency Provider Emergency Medicine; PCP Family Medicine Adult Medicine
DX: R05.9 Cough, unspecified (principal); Z53.21 Procedure and treatment not carried out due to patient leaving prior to being seen by health care provider; Z86.19 Personal history of other infectious and parasitic diseases; F17.210 Nicotine dependence, cigarettes, uncomplicated
CPT/HCPCS: 71045; 72100; 99284